=== PATIENT | male | born 1955 | race Caucasian/White ===

== ENCOUNTER 2017-07-01 07:00 | Inpatient (IN) | payer OTHER ==
[2017-06-06 11:43] VITALS: BMI 40.0
--- NOTE | 2017-06-06 12:13 | PAT Medication Instructions ---
Service Date Jun 06, 2017. Current Home Medication List Aspirin (Aspirin Ec), 81 MG PO QAM Atorvastatin (Lipitor), 40 MG PO QAM Finasteride (Proscar), 5 MG PO QAM Furosemide (Lasix), 20 MG PO QAM Metoprolol Succinate (Toprol Xl), 25 MG PO QAM Potassium Chloride (Micro-K Ext Rel), 10 MEQ PO QAM [L Lysine], 500 MG PO QAM Medication Instructions For Your Scheduled Surgery - Hold the following medications the morning of surgery: Finasteride (Proscar), 5 MG PO QAM Furosemide (Lasix), 20 MG PO QAM Potassium Chloride (Micro-K Ext Rel), 10 MEQ PO QAM [L Lysine], 500 MG PO QAM - Take the following medications the morning of surgery with a sip of water: Aspirin (Aspirin Ec), 81 MG PO QAM (okay to continue per surgeon) Atorvastatin (Lipitor), 40 MG PO QAM Metoprolol Succinate (Toprol Xl), 25 MG PO QAM If you have any questions please call us at [phone] or [phone] or [phone]
[2017-06-06 13:18] LABS: BASO % 1.5 %; BASO ABS # 0.07 K/uL (0-0.2); COMPLETE YES; EOS % 6.9 %; HEMATOCRIT 40.4 % (42-52); IG% 0.2 %; MEAN CELL VOLUME 87.3 fL (80-100); MEAN CORPUSCULAR HEMOGLOBIN 29.8 pg (25-34); MEAN CORPUSCULAR HGB CONC 34.2 g/dl (32-36); MEAN PLATELET VOLUME 9.2 fL (7.4-10.4); MONO % 10.7 %; NEUT % 57.7 %; PLATELET COUNT 237 K/uL (130-400); RED BLOOD COUNT 4.63 M/uL (4.7-6.1); WHITE BLOOD COUNT 4.78 K/uL (4.8-10.8)
--- NOTE | 2017-06-06 13:26 | DIAGNOSTIC IMAGING REPORT ---
CHEST PREADMISSION(PA/LAT) HISTORY: 62 years-old Male PAT pre-operative exam. No acute chest complaints. COMPARISON: None available. TECHNIQUE: Frontal and lateral views of the chest FINDINGS: Prior median sternotomy. Cardiomediastinal and hilar silhouettes are within normal limits. There is no pneumothorax, pleural effusion or focal airspace consolidation. Bones of the chest are grossly intact. IMPRESSION: No acute cardiopulmonary process. The above report was generated using voice recognition software. It may contain grammatical, syntax or spelling errors. Electronically signed by: Kamron Ruiz M.D. 06/06/2017 1:25 PM Dictated Date/Time: 06/06/2017 1:17 PM
[2017-06-06 13:34] LABS: URINE APPEARANCE CLEAR (CLEAR); URINE BILIRUBIN NEG (NEG); URINE COLOR YELLOW; URINE NITRITE NEG (NEG); URINE SPECIFIC GRAVITY 1.022 (1.000-1.030); UROBILINOGEN NEG (NEG); ZZUR CULT IF INDIC CLEAN CATCH NO
[2017-06-06 13:39] LABS: MANUAL MICROSCOPIC REQUIRED? NO; REVIEW REQ? NO
[2017-06-06 14:39] LABS: BUN/CREATININE RATIO 20.3 (10-20); CALCIUM 8.7 mg/dl (8.5-10.1); CREATININE 1.01 mg/dl (0.60-1.40); POTASSIUM 4.3 mmol/L (3.5-5.1)
[~2017-07-01] VITALS: Ht 182.9 cm; Wt 135.3 kg
[2017-07-01] VITALS (8 sets, daily range): BP systolic 108–161; BP diastolic 67–87; PULSE 70–99; TEMP 36.5–37; O2SAT 93–99; Ht 182.9 cm; Wt 135.3 kg
[~2017-07-01 07:00] MED LIST: ASPI81TA28 PO; ATOR-24 PO; CEFAZOLIN 3000MG IV PUSH 15 ML IV SCH; FINA5TAB PO; FURO-85 PO; L LYSINE PO; LACTATED RINGER'S 1000ML 1,000 ML IV SCH; METO25TA3 PO; POTA10CA28 PO
[2017-07-01] MEDS ORDERED: HYDROmorphone INJ 1 MG/ML SYR IV PRN (07:45)
[2017-07-01] MEDS ORDERED: FENTANYL CITRATE INJ 50 MCG/1 ML 2 ML VIAL IV PRN (07:45)
[2017-07-01] MEDS ORDERED: EpHEDrine SULFATE INJ 50 MG/ML AMP IV PRN (07:45)
[2017-07-01] MEDS ORDERED: ONDANSETRON INJ 2 MG/ML 2 ML VIAL IV PRN (07:45)
[2017-07-01] MEDS ORDERED: ATROPINE SULFATE 0.1 MG/ML 5ML SYR IV PRN (07:45)
[2017-07-01] MEDS ORDERED: FENTANYL CITRATE INJ 50 MCG/1 ML 2 ML VIAL ONE ×4 (08:11→11:59)
[2017-07-01] MEDS ORDERED: MIDAZOLAM HCL 1 MG/ML 2ML VIAL ONE (08:11)
--- NOTE | 2017-07-01 08:40 | History & Physical Bridge Note ---
H&P Re-Evaluation Bridge Note: I have examined the patient, reviewed the History & Physical and in the interval since the performance of the History & Physical I have noted the following changes of clinical significance: No changes noted
--- NOTE | 2017-07-01 08:41 | History and Physical ---
History & Physical Date Jul 01, 2017. Chief Complaint Back and bilateral leg pain History of Present Illness The patient is a 62 year old male with complaints of back and leg pain Additional History Hepatic Disease: No Endocrine Disorder: No Kidney Disease: No Hypertension: Yes Heart Disease: No Bleeding Tendencies: No Infectious Diseases: No Allergies Coded Allergies: No Known Allergies (Verified , 06/06/17) Home Medications Scheduled Aspirin (Aspirin Ec), 81 MG PO QAM Atorvastatin (Lipitor), 40 MG PO QAM Finasteride (Proscar), 5 MG PO QAM Furosemide (Lasix), 20 MG PO QAM Metoprolol Succinate (Toprol Xl), 25 MG PO QAM Potassium Chloride (Micro-K Ext Rel), 10 MEQ PO QAM [L Lysine], 500 MG PO QAM Physical Examination Skin: warm/dry, no rash Eyes: normal inspection, EOMI, sclerae normal ENT: normal ENT inspection, pharynx normal Head: normocephalic, atraumatic Neck: supple, no adenopathy, trachea midline Respiratory/Chest: lungs clear, normal breath sounds, no respiratory distress Cardiovascular: regular rate, rhythm, no edema, no murmur Abdomen / GI: normal bowel sounds, non tender Back: normal inspection Extremities: normal inspection, normal range of motion Neurologic/Psych: no motor/sensory deficits, alert, normal reflexes, oriented x 3 Diagnosis Lumbar spinal stenosis with spondylolisthesis Plan of Treatment Lumbar decompression and fusion L3 to S1
[2017-07-01] MEDS ORDERED: ALBUMIN HUMAN 5% 12.5 GM/250 ML VIAL IV ONE (08:54)
[2017-07-01] MEDS ORDERED: BUPIVACAINE/EPINEPHRINE 0.5% MPF 1:200,000 30 ML VIAL ONE (08:58)
[2017-07-01] MEDS ORDERED: BACITRACIN 50000 UNIT VIAL ONE (08:58)
[2017-07-01] MEDS ORDERED: HYDROmorphone INJ 2 MG/ML SYR/VIAL ONE ×3 (09:39→12:13)
[2017-07-01] MEDS ORDERED: THROMBIN FOR SOLN 20000 UNIT KIT ONE ×2 (10:20→10:27)
[2017-07-01] MEDS ORDERED: THROMBIN 5000 UNITS KIT ONE (10:20)
[2017-07-01 11:12] LABS: HEMATOCRIT 32.9 % (42-52)
[2017-07-01] MEDS ORDERED: DEXAMETHASONE SOD INJ 4 MG/ML VIAL ONE (11:29)
[2017-07-01] MEDS ORDERED: LIDOCAINE HCL 2% 2 ML VIAL (20MG/ML) ONE (11:29)
[2017-07-01] MEDS ORDERED: ONDANSETRON INJ 2 MG/ML 2 ML VIAL ONE (11:29)
[2017-07-01] MEDS ORDERED: PROPOFOL IV EMULSION 10 MG/ML 20 ML VIAL IV ONE (11:29)
[2017-07-01] MEDS ORDERED: ROCURONIUM BROMIDE 10 MG/ML 5 ML VIAL IV ONE (11:34)
[2017-07-01 11:52] LABS: HEMATOCRIT 30.6 % (42-52)
[2017-07-01] MEDS ORDERED: FLOSEAL HEMOSTATIC MATRIX 10ML TOP ONE (12:03)
[2017-07-01] MEDS ORDERED: SODIUM CHLORIDE 0.9% 1000ML 1,000 ML IV SCH (12:05)
[2017-07-01] MEDS ORDERED: CEFAZOLIN SOD 1 GM VIAL ONE (12:07)
[2017-07-01] MEDS ORDERED: CALCIUM CHLORIDE 10% 10 ML SYR ONE (12:07)
[2017-07-01] MEDS ORDERED: GLYCOPYRROLATE INJ 0.2 MG/ML VIAL ONE (12:14)
[2017-07-01] MEDS ORDERED: EpHEDrine SULFATE 50MG/5ML SYR ONE (12:14)
[2017-07-01] MEDS ORDERED: PHENYLEPHRINE 100MCG/ML 5ML SYR ONE (12:14)
[2017-07-01] MEDS ORDERED: EpHEDrine SULFATE INJ 50 MG/ML AMP ONE (12:14)
[2017-07-01] MEDS ORDERED: LORAZEPAM 0.5 MG TAB PO PRN (12:15)
[2017-07-01] MEDS ORDERED: DO NOT ADMINISTER PNEUMOCOCCAL VACCINE PRN ×2 (12:15)
[2017-07-01] MEDS ORDERED: MAGNESIUM HYDROXIDE SUSP 30 ML UDC PO PRN (12:15)
[2017-07-01] MEDS ORDERED: NALOXONE HCL 0.4 MG/1 ML VIAL/CARP IV PRN ×2 (12:15)
[2017-07-01] MEDS ORDERED: ACETAMINOPHEN IV 100 ML IV PRN (12:15)
[2017-07-01] MEDS ORDERED: hydrOXYzine HCL 25 MG TAB PO PRN (12:15)
[2017-07-01] MEDS ORDERED: ALUMINUM/MAGNESIUM SUSP 30 ML UDC PO PRN (12:15)
[2017-07-01] MEDS ORDERED: FAMOTIDINE 20 MG TAB PO PRN (12:15)
[2017-07-01] MEDS ORDERED: LORAZEPAM INJ 0.5 MG in SYRINGE 0 ML IV PRN (12:15)
[2017-07-01] MEDS ORDERED: SOD PHOSPHATE/SOD BIPHOSPHATE ENEMA 132 ML BTL PR PRN (12:15)
[2017-07-01] MEDS ORDERED: DO NOT ADMINISTER FLU VACCINE PRN ×3 (12:15)
[2017-07-01] MEDS ORDERED: BISACODYL 10 MG SUPP PR PRN (12:15)
[2017-07-01] MEDS ORDERED: ACETAMINOPHEN 500 MG TAB PO PRN (12:15)
[2017-07-01] MEDS ORDERED: HYDROmorphone HCL 0.5MG/ML 50 ML CASSETTE ONE (12:33)
--- NOTE | 2017-07-01 12:36 | [facility] Operative Report ---
Operative Report Operative Date Jul 01, 2017. Pre-Operative Diagnosis Lumbar Spinal Stenosis with Spondylolisthesis Post-Operative Diagnosis Same as preoperative Procedure(s) Performed #1 lumbar decompression medial facetectomy foraminotomies L3 4 L4 5 L5-S1. #2 posterior spinal fusion L3 4 L4 5 L5-S1. #3 placement of posterior segmental instrumentation L3 4 L4 5 L5-S1. #4 placement of locally harvested morcellized autograft in the posterior lateral gutters. #5 placement infuse collagen sponge combined Master graft the posterior gutters as well as ostial amp. Surgeon Dr. Jaswant Hutchison Social Services Manager Surgeon(s) Keily Nazario PA-C Estimated Blood Loss 1800ml Findings Severe spinal stenosis with spondylolisthesis Specimens None per surgeon Description of Procedure Patient was met with preoperatively case discussed all questions addressed. After informed consent was obtained patient was taken back to the operative suite underwent intubation and placed in a prone position the Mayer table top Raul frame all bony prominences well-padded eyes inspected to ensure no external pressure placed upon them. This point the lumbar spine is prepped and draped in the normal sterile fashion. Sharp dissection with the assistance of Bovie cautery was performed onto an exposing the lamina and transverse processes of L5 3 L4-L5 and the sacral alar bilaterally. From a caudal to cephalad fashion complete laminectomy of L5 L4 and L3 was performed addressing severe lateral recess and foraminal disease. Pedicle screws are then placed in L3 L4-L5 and the S1 levels bilaterally. The purposes rosa was locked in position. Transverse processes of L3 L4-L5 and sacral alar burred to subcortical bleeding bone. Infuse collagen sponge mask graft and ostial amp was placed in the posterior lateral gutters. Cross-link was locked in position. A 15 round IRVIN drain inserted. Incision then closed with 1 Vicryl in the fascia 2-0 Vicryl subcutaneous tediously 4-0 Monocryl for final skin closure Steri-Strips sterile dressings placed. Patient we can take PACU stable condition. Please note Keily Coto was present at the entire procedure involved in patient positioning complex portions of the surgery and final skin closure. I attest to the content of the Intraoperative Record and any orders documented therein. Any exceptions are noted below.
[2017-07-01] MEDS ORDERED: VOLUVEN IN NSS ONE (12:39)
--- NOTE | 2017-07-01 12:49 | DIAGNOSTIC IMAGING REPORT ---
LUMBAR SPINE 2 OR 3 VIEW CLINICAL HISTORY: L3-S1 LUMBAR DECOMPRESSION AND FUSION COMPARISON STUDY: Lumbar spine MRI March 14, 2017. Fluoroscopy time: 31.4 seconds. FINDINGS: These 3 fluoroscopic images demonstrate a posterior decompression with bilateral pedicle screws at the L3, L4, L5 and S1 levels. There are interconnecting rods. Hardware is intact. IMPRESSION: Fluoroscopic images demonstrating a posterior decompression with L3-S1 bilateral pedicle screw fusion. Electronically signed by: Joe Zee M.D. 07/01/2017 12:47 PM Dictated Date/Time: 07/01/2017 12:46 PM
--- NOTE | 2017-07-01 13:12 | Anesthesiology Progress Note ---
Anesthesia Post Op Note Date & Time Jul 01, 2017 at 13:11 Vital Signs Pain Intensity: 2 Vital Signs Past 12 Hours Date Time Temp Pulse Resp B/P (MAP) Pulse Ox O2 Delivery O2 Flow Rate FiO2 07/01/17 13:05 36.2 86 14 113/72 94 Nasal Cannula 4 07/01/17 12:55 88 15 124/70 98 Nasal Cannula 4 07/01/17 12:45 82 13 113/63 97 Oxymask 10 07/01/17 12:35 90 13 126/76 100 Oxymask 10 07/01/17 12:29 36.0 90 18 123/72 97 Oxymask 10 07/01/17 07:54 36.6 70 20 161/87 95 Room Air Notes Mental Status: alert / awake / arousable, participated in evaluation Pt Amnestic to Procedure: Yes Nausea / Vomiting: adequately controlled Pain: adequately controlled Airway Patency, RR, SpO2: stable & adequate BP & HR: stable & adequate Hydration State: stable & adequate Anesthetic Complications: no major complications apparent
[2017-07-01] MEDS: HYDROmorphone HCL 0.5MG/ML 50 ML CASSETTE IV PRN ×3 (13:25→22:49)
[2017-07-01] MEDS ORDERED: TAMS0.4C38 PO (15:29)
[2017-07-01] MEDS: DEXAMETHASONE INJ 6 MG in SYRINGE 0 ML IV SCH ×2 (16:08→23:48)
--- NOTE | 2017-07-01 16:12 | Medical Consult ---
Consultation Date of Consultation: Jul 01, 2017. Attending Physician: Jaswant Hutchison D.O. Reason for Consultation: Post Op Medical Management History of Present Illness 62 year old male who is s/p L3-S1 decompression / fusion today by Dr. Hutchison. Patient reports increasing back pain for the past several years. He failed outpatient conservative measures and therefore presented for the planned procedure today. Post operatively the patient is doing well. He reports his pain is well controlled. He denies chest pain and shortness of breath. No lightheadedness or dizziness. He denies numbness to the BLLE. No abdominal pain or nausea. Burch is in place draining yellow urine. Past Medical/Surgical History Medical Problems: (1) BPH (benign prostatic hyperplasia) Status: Chronic (2) CAD (coronary artery disease) Permanent Comment: 04/2016 - CABG x 3 Status: Chronic Surgical Problems: (1) History of right hip replacement Status: Chronic Family History FH: CAD (coronary artery disease) MOTHER UNCLE Hypertension FATHER Social History Smoking Status: Never Smoker Smokeless Tobacco Use: Former Alcohol Use: occasionally Allergies Coded Allergies: No Known Allergies (Verified , 06/06/17) Home Medications Flomax (Tamsulosin Hcl) 0.4 Mg Cap 0.4 Mg PO DAILY [L Lysine] 500 Mg PO QAM Proscar (Finasteride) 5 Mg Tab 5 Mg PO QAM Toprol Xl (Metoprolol Succinate) 25 Mg Tabcr 25 Mg PO QAM Aspirin Ec (Aspirin) 81 Mg Tab 81 Mg PO QAM Lasix (Furosemide) 20 Mg Tab 20 Mg PO QAM Lipitor (Atorvastatin Calcium) 40 Mg Tab 40 Mg PO QAM Micro-K Ext Rel (Potassium Chloride) 10 Meq Capcr 10 Meq PO QAM Current Inpatient Medications Current Inpatient Medications Medications (Trade) Dose Ordered Sig/Drew Route Start Time Stop Time Status Last Admin Dose Admin Lactated Ringer's 1,000 ml @ 15 mls/hr Q24H IV 07/01/17 06:00 07/02/17 05:59 07/01/17 09:20 15 MLS/HR Cefazolin Sodium 15 ml @ 3 mls/min PREOP IV 07/01/17 06:00 07/01/17 18:00 07/01/17 09:12 3 MLS/MIN Dexamethasone Sodium Phosphate 6 mg/Syringe 1.5 ml @ 1 mls/min Q8H IV 07/01/17 16:00 07/02/17 08:02 Lorazepam (Ativan Tab) 0.5 mg Q8H PRN PO 07/01/17 12:15 07/31/17 12:14 Lorazepam 0.5 mg/ Syringe 0.25 ml @ 1 mls/min Q8H PRN IV 07/01/17 12:15 07/31/17 12:14 Pneumococcal Polysaccharide Vaccine 1 ea PRN PRN N/A 07/01/17 12:15 07/31/17 12:14 Influenza Virus Vacc Triv Types A&B 1 ea PRN PRN N/A 07/01/17 12:15 07/31/17 12:14 Polyethylene (Miralax Powder Packet) 17 gm Q6 PO 07/03/17 06:00 08/02/17 05:59 Bisacodyl (Dulcolax Supp) 10 mg DAILY PRN [place] 07/01/17 12:15 07/31/17 12:14 Magnesium Hydroxide (Milk Of Magnesia Susp) 30 ml DAILY PRN PO 07/01/17 12:15 07/31/17 12:14 Hydromorphone HCl (Dilaudid Inj) 0.5 mg Q3H PRN IV 07/02/17 06:00 07/16/17 05:59 Oxycodone HCl (Roxicodone Immediate Rel Tab) 5-10mg prn moderate to sev... Q4H PRN PO 07/02/17 06:00 07/16/17 05:59 Cefazolin Sodium 3000 mg/Syringe 15 ml @ 3 mls/min Q8H IV 07/01/17 20:00 07/02/17 04:04 Sodium Chloride 1,000 ml @ 150 mls/hr Q6H40M IV 07/01/17 15:00 07/31/17 14:59 Acetaminophen (Tylenol Tab) 1,000 mg Q8H PRN PO 07/01/17 12:15 07/31/17 12:14 Acetaminophen 100 ml @ 400 mls/hr Q8H PRN IV 07/01/17 12:15 07/31/17 12:14 Naloxone HCl (Narcan Inj) 0.1 mg Q5M PRN IV 07/01/17 12:15 07/31/17 12:14 Senna/Docusate Sodium (Senokot S Tab) 2 tab HS PO 07/01/17 21:00 07/31/17 20:59 Sodium Biphosphate/ Sodium Phosphate (Fleet Enema) 132 ml ONE PRN [place] 07/01/17 12:15 07/31/17 12:14 Hydroxyzine HCl (Vistaril Tab) 25 mg Q8H PRN PO 07/01/17 12:15 07/31/17 12:14 Al Hydroxide/Mg Hydroxide (Maalox Susp) 30 ml Q6H PRN PO 07/01/17 12:15 07/31/17 12:14 Famotidine (Pepcid Tab) 20 mg Q12H PRN PO 07/01/17 12:15 07/31/17 12:14 Diphenhydramine HCl (Benadryl Cap) 25 mg Q6H PRN PO 07/01/17 12:15 07/31/17 12:14 Miscellaneous Information (Discontinue WRAP CHECKER) 1 ea TODAY@0600 N/A 07/02/17 06:00 07/02/17 07:00 Naloxone HCl (Narcan Inj) 0.1 mg Q5M PRN IV 07/01/17 12:15 07/02/17 06:00 Hydromorphone HCl (Dilaudid Doctor [facility]iatric Medicine) 25 mg PRN PRN IV 07/01/17 12:15 07/02/17 06:00 07/01/17 14:58 25 MG Sodium Chloride 1,000 ml @ 15 mls/hr Q24H IV 07/01/17 12:05 07/02/17 06:00 Aspirin (Ecotrin Tab) 81 mg QAM PO 07/02/17 09:00 08/01/17 08:59 Atorvastatin Calcium (Lipitor Tab) 40 mg QAM PO 07/02/17 09:00 08/01/17 08:59 Finasteride (Proscar Tab) 5 mg QAM PO 07/02/17 09:00 08/01/17 08:59 Furosemide (Lasix Tab) 20 mg QAM PO 07/02/17 09:00 08/01/17 08:59 Metoprolol Succinate (Toprol Xl Tab) 25 mg QAM PO 07/02/17 09:00 08/01/17 08:59 Potassium Chloride (Klor-Con M10) 10 meq QAM PO 07/02/17 09:00 08/01/17 08:59 Hydromorphone HCl (Dilaudid Inj) 1 mg Q3H PRN IV 07/02/17 06:00 07/16/17 05:59 Tamsulosin HCl (Flomax Cap) 0.4 mg DAILY PO 07/02/17 09:00 08/01/17 08:59 UNV Review of Systems ROS per HPI, all other systems reviewed and negative Physical Exam Date Time Temp Pulse Resp B/P (MAP) Pulse Ox O2 Delivery O2 Flow Rate FiO2 07/01/17 15:30 36.5 88 18 136/83 (100) 99 Nasal Cannula 2.0 07/01/17 14:26 99 16 111/73 (86) 97 Nasal Cannula 4.0 07/01/17 14:00 91 18 111/73 (86) 97 Nasal Cannula 4.0 07/01/17 14:00 91 18 114/76 (89) 94 07/01/17 13:30 96 Nasal Cannula 4.0 07/01/17 13:30 Nasal Cannula 4.0 07/01/17 13:30 36.8 89 18 115/68 (84) 96 Nasal Cannula 4.0 07/01/17 13:05 36.2 86 14 113/72 94 Nasal Cannula 4 07/01/17 12:55 88 15 124/70 98 Nasal Cannula 4 07/01/17 12:45 82 13 113/63 97 Oxymask 10 07/01/17 12:35 90 13 126/76 100 Oxymask 10 07/01/17 12:29 36.0 90 18 123/72 97 Oxymask 10 07/01/17 07:54 36.6 70 20 161/87 95 Room Air General Appearance: WD/WN, no apparent distress Head: normocephalic, atraumatic Eyes: normal inspection, EOMI, sclerae normal ENT: hearing grossly normal, + pertinent finding (mucous membranes moist) Neck: supple, no JVD, trachea midline Respiratory/Chest: lungs clear, normal breath sounds, no respiratory distress Cardiovascular: regular rate, rhythm, no edema, normal peripheral pulses Abdomen/GI: normal bowel sounds, non tender, soft, no organomegaly, + distended Genitourinary - Male: + pertinent finding (burch in place draining yellow urine ) Back: + pertinent finding (s/p back surgery, pedal pushes and pulls strong BL, drain in place draining bloody drainage) Extremities/Musculoskelatal: normal inspection, no calf tenderness, normal capillary refill Neurologic/Psych: no motor/sensory deficits, alert, normal mood/affect, oriented x 3 Skin: normal color, warm/dry Laboratory Results Last 24 Hours Test 07/01/17 11:01 07/01/17 11:45 Hemoglobin 11.0 g/dL 10.2 g/dL Hematocrit 32.9 % 30.6 % Assessment & Plan S/P L3-S1 DECOMPRESSION / FUSION - POD#0 - activity and wound care orders as per ortho - pain control with bowel regimen - PT/OT - monitor H/H for acute blood loss anemia and transfuse blood products PRN - 1800 EBL; will recheck H/H tonight CAD - s/p CABG x 3 04/2016 - stable, no reports of chest pain - continue ASA, beta galo, and statin BPH - continue finasteride and tamsulosin DVT PROPHYLAXIS - SCDs per ortho Thank you for this consultation. We will follow the patient with you during their hospital stay. You can reach a member of the [facility] Hospitalist Team 18/02 via pager @ . ADDENDUM: I have seen and examined the patient and agree with the assessment and plan as above. Pt continues on ASA with large EBL intraoperatively and continued drainage post-op. Repeat H/H was negative. Cont to monitor while hospitalized. Thank you for this consultation. DO Arcenio
[2017-07-01] MEDS: SODIUM CHLORIDE 0.9% 1000ML 1,000 ML IV SCH ×2 (18:24→23:48)
[2017-07-01 19:27] LABS: HEMATOCRIT 31.6 % (42-52)
[2017-07-01] MEDS ORDERED: NURSING VERBAL MED ORDER ONE (19:30)
[2017-07-01] MEDS: CEFAZOLIN IV 3,000 MG in SYRINGE 0 ML IV SCH (20:02)
[2017-07-01] MEDS: DOCUSATE SODIUM/SENNA 50/8.6MG TAB PO SCH (21:07)
[2017-07-02 03:29] VITALS: BP 121/66; PULSE 92; TEMP 36.8; O2SAT 95
[2017-07-02] MEDS: CEFAZOLIN IV 3,000 MG in SYRINGE 0 ML IV SCH (04:03)
[2017-07-02] MEDS ORDERED: HYDROmorphone INJ 1 MG/ML SYR IV PRN (06:00)
[2017-07-02] MEDS ORDERED: HYDROmorphone INJ 0.5 MG/0.5 ML SYR IV PRN (06:00)
[2017-07-02] MEDS ORDERED: DC PCA SCH (06:00)
[2017-07-02] MEDS ORDERED: NURSING VERBAL MED ORDER ONE (06:45)
[2017-07-02 06:49] LABS: BASO % 0.1 %; BASO ABS # 0.01 K/uL (0-0.2); COMPLETE YES; HEMATOCRIT 29.2 % (42-52); IG% 0.5 %; LYMPH ABS # 0.53 K/uL (1.2-3.4); MEAN CELL VOLUME 87.7 fL (80-100); MEAN CORPUSCULAR HEMOGLOBIN 29.4 pg (25-34); MEAN CORPUSCULAR HGB CONC 33.6 g/dl (32-36); MEAN PLATELET VOLUME 9.3 fL (7.4-10.4); MONO % 4.9 %; NEUT % 90.5 %; PLATELET COUNT 178 K/uL (130-400); RED BLOOD COUNT 3.33 M/uL (4.7-6.1); WHITE BLOOD COUNT 13.31 K/uL (4.8-10.8)
[2017-07-02 07:17] LABS: BUN/CREATININE RATIO 19.4 (10-20); CALCIUM 8.2 mg/dl (8.5-10.1); CREATININE 1.11 mg/dl (0.60-1.40); POTASSIUM 3.8 mmol/L (3.5-5.1)
[2017-07-02 07:18] VITALS: O2SAT 97
[2017-07-02 07:25] VITALS: BP 129/72; PULSE 84; TEMP 36.6; O2SAT 97
[2017-07-02] MEDS ORDERED: RXC5 PO (07:43)
--- NOTE | 2017-07-02 07:43 | Discharge Instructions ---
Discharge Instructions Date of Service Jul 02, 2017. Admission Reason for Admission: Lumbar Spinal Stenosis Discharge Discharge Diagnosis / Problem: lumbar spinal stenosis Discharge Goals Goal(s): Improve function Activity Recommendations Activity Limitations: per Instructions/Follow-up section . Instructions / Follow-Up Instructions / Follow-Up ACTIVITY RECOMMENDATIONS: SELF CARE INSTRUCTIONS AFTER THORACIC/LUMBAR FUSIONS 1. You may walk to your tolerance. It is good exercise for your legs and back. Expect some back and intermittent leg aches and pains. 2. You may perform "counter-top" level activities (make a sandwich, lenore with a project, etc.). 3. No bending or lifting of more than 10 pounds or back twisting of any nature (roll like a log when turning in bed). 4. You may ride in a car for 20-30 minutes at a time. No driving until after your first visit with your doctor. 5. Frequent changes of position and restricting sitting to 30 minutes at a time will help limit the amount of back spasms and stiffness you may experience. 6. You may discontinue the use of ambulatory aids (cane, crutches, etc.) once your strength and confidence allow. 7. You may risk investigator the shower and let water strike your incision when you arrive home at least once daily. Do not take a tub bath, sit in a hot tub or go into a swimming pool until after your first recheck in the office. SPECIAL CARE INSTRUCTIONS: VERY IMPORTANT TO READ AND REVIEW A. Your surgical incision has been closed with a cosmetic suture under the skin that will dissolve in about 6 weeks. In 14 days, you can use a pair of clean scissors and cut the suture that is left outside of the skin at the ends of your incision. 1. The small skin tapes can be removed 7 days after surgery if they have not fallen off by that point. 2. You may keep the wound open to air as much as possible to promote healing after post-op day number 5 unless told otherwise by your doctor. 3. If you think the wound looks like it is becoming infected (redness or worsening drainage) and/or you are experiencing fever, chill or worsening back pain and muscle spasms, contact the office so that we may evaluate you as soon as possible. B. Complications are uncommon, but please contact us if you have any signs or symptoms of: 1. wound infection (fever higher than 102.5 degrees F, redness, separation of wound, drainage, or increasing pain from the incision) 2. blood clots in legs (pain, swelling, redness and warmth in legs) 3. urinary tract infection (fever higher than 102.5 degrees F, burning upon urination or increased frequency of urination) 4. nerve problems (inability to walk on your toes or heels, numbness, loss of bowel or bladder control) 5. any other symptoms that concern you C. Please call the office at if you have any concerns or questions about your operation or recovery. D. No smoking! Smoking drastically decreases the chance of a solid fusion. E. Do not take any anti-inflammatory medications (Indocin, Advil, Motrin, Aspirin, Naprosyn, etc.) as these may inhibit the chance of a solid fusion. Tylenol is okay to take for pain. MANAGING PAIN AFTER SPINAL SURGERY 1. Narcotic medication is intended for short-term use and will be provided for surgical pain. Surgical pain usually lasts for a period of 4-6 weeks. Narcotic medication includes Percocet, Vicodin, Darvocet, Tylenol #3 or Lortab. 2. Longer-term pain is more appropriately treated with non-narcotic medication such as Tylenol ES. 3. Muscle spasm is not appropriately treated with narcotics. Muscle relaxers such as Soma, Flexeril or Skelaxin can be used along with Tylenol ES. 4. Remember that we all live with some "aches and pains". This is not unusual or uncommon after an injury or as we get older. a. Back pain is expected and may include muscle spasms for 4 to 6 weeks after surgery. The pain should gradually improve. If the pain worsens for no apparent reason, please contact the office. b. Intermittent leg pain may also be experienced and should not be concerned about unless it worsens for no apparent reason. If so, please contact the office. 5. We will provide appropriate medication within the normal guidelines of their prescribed use. We will also be very cautious and aware of potential abuse and extended duration of patients' medication needs. a. Pain medications are for your comfort and to assist with sleep and rest so that the tissue can heal. They are not provided in order to return to normal activity and should not be used through the day. To do so or worsening pain at night can result from ongoing tissue damage and development of tolerance to the prescribed medicine. 6. Please allow 2-3 days to process refills. Prescriptions will not be mailed but must be picked up at the office. FOLLOW UP VISIT: Keep your scheduled follow-up appointment. Any questions, please call the office at . Current Hospital Diet Patient's current hospital diet: Regular Diet Discharge Diet Recommended Diet: Regular Diet Procedures Procedures Performed: #1 lumbar decompression medial facetectomy foraminotomies L3 4 L4 5 L5-S1. #2 posterior spinal fusion L3 4 L4 5 L5-S1. #3 placement of posterior segmental instrumentation L3 4 L4 5 L5-S1. #4 placement of locally harvested morcellized autograft in the posterior lateral gutters. #5 placement infuse collagen sponge combined Master graft the posterior gutters as well as ostial amp. Pending Studies Studies pending at discharge: no Medical Emergencies . Who to Call and When: Medical Emergencies: If at any time you feel your situation is an emergency, please call 911 immediately. . Non-Emergent Contact Non-Emergency issues call your: Primary Care Provider . "Provider Documentation" section prepared by Jaswant Hutchison. . VTE Core Measure Inpt VTE Proph given/why not?: Adolph Crystal, SCD's
[2017-07-02] MEDS: DEXAMETHASONE INJ 6 MG in SYRINGE 0 ML IV SCH (08:12)
[2017-07-02] MEDS: TAMSULOSIN HCL 0.4 MG CAP PO SCH (08:13)
[2017-07-02] MEDS: ASPIRIN 81 MG ECTAB PO SCH (08:13)
[2017-07-02] MEDS: POTASSIUM CHLORIDE 10 MEQ TABCR PO SCH (08:14)
[2017-07-02] MEDS: ATORVASTATIN 40 MG TAB PO SCH (08:14)
[2017-07-02] MEDS: FINASTERIDE 5 MG TAB PO SCH (08:14)
[2017-07-02] MEDS: FUROSEMIDE 20 MG TAB PO SCH (08:15)
[2017-07-02] MEDS: METOPROLOL SUCC 25MG EXT REL TAB PO SCH (08:15)
--- NOTE | 2017-07-02 08:56 | Anesthesiology Progress Note ---
Anesthesia Post Op Note Date & Time Jul 02, 2017 at 08:56 Vital Signs Pain Intensity: 0.0 Vital Signs Past 12 Hours Date Time Temp Pulse Resp B/P (MAP) Pulse Ox O2 Delivery O2 Flow Rate FiO2 07/02/17 07:25 36.6 84 16 129/72 (91) 97 Room Air 07/02/17 03:29 36.8 92 18 121/66 (84) 95 Room Air 07/01/17 23:45 Room Air 0.0 07/01/17 23:02 37.0 84 18 112/67 (82) 94 Room Air Notes Mental Status: alert / awake / arousable, participated in evaluation Pt Amnestic to Procedure: Yes Nausea / Vomiting: adequately controlled Pain: adequately controlled Airway Patency, RR, SpO2: stable & adequate BP & HR: stable & adequate Hydration State: stable & adequate Anesthetic Complications: no major complications apparent
[2017-07-02 11:08] VITALS: BP 122/73; PULSE 85; TEMP 36.8; O2SAT 96
[2017-07-02] MEDS: OXYCODONE HCL IR 5 MG TAB (IMMEDIATE RELEASE) PO PRN ×3 (14:25→19:14)
[2017-07-02] MEDS ORDERED: KETOROLAC TROMETHAMINE 30 MG/ML VIAL IV PRN (14:30)
--- NOTE | 2017-07-02 14:32 | Progress Note ---
Progress Note Date of Service Jul 02, 2017. Progress Note Patient is postop day 1 status post multilevel lumbar decompression fusion. Exam he is sitting in chair at bedside as good strength testing appears comfortable. Assessment status post lumbar decompression fusion. Plan at this time will continue to advance his activity as well as his bowel regiment. Anticipate discharge home with home health.
[2017-07-02 15:29] VITALS: BP 131/67; PULSE 81; TEMP 37; O2SAT 95
--- NOTE | 2017-07-02 19:19 | Progress Note ---
Medicine Progress Note Date & Time of Visit: Jul 02, 2017 at 19:13. Subjective Pt was seen and examined Sitting in chair very comfortable with family presents Pt said that he walked in the hallway today with no discomfort Pt said that he is not on any pain Denies any chest pain, palpitation, dizziness and SOB Objective Last 8 Hrs Date Time Temp Pulse Resp B/P (MAP) Pulse Ox O2 Delivery O2 Flow Rate FiO2 07/02/17 15:35 Room Air 07/02/17 15:29 37.0 81 18 131/67 (88) 95 Room Air Physical Exam: General- no acute distress Head- atraumatic Eyes- PERRL, EOMI ENT- oropharynx clear Neck- supple, no JVD Lungs- clear to auscultation Heart- regular rhythm Abdomen- normal bowel sounds, soft Extremities-No calf tenderness Neuro- alert, oriented x 3; PERRL, EOMI Skin- warm & dry Laboratory Results: Last 24 Hours Test 07/01/17 19:17 07/02/17 06:31 Hemoglobin 10.6 g/dL 9.8 g/dL Hematocrit 31.6 % 29.2 % White Blood Count 13.31 K/uL Red Blood Count 3.33 M/uL Mean Corpuscular Volume 87.7 fL Mean Corpuscular Hemoglobin 29.4 pg Mean Corpuscular Hemoglobin Concent 33.6 g/dl Platelet Count 178 K/uL Mean Platelet Volume 9.3 fL Neutrophils (%) (Auto) 90.5 % Lymphocytes (%) (Auto) 4.0 % Monocytes (%) (Auto) 4.9 % Eosinophils (%) (Auto) 0.0 % Basophils (%) (Auto) 0.1 % Neutrophils # (Auto) 12.06 K/uL Lymphocytes # (Auto) 0.53 K/uL Monocytes # (Auto) 0.65 K/uL Eosinophils # (Auto) 0.00 K/uL Basophils # (Auto) 0.01 K/uL RDW Standard Deviation 41.5 fL RDW Coefficient of Variation 12.8 % Immature Granulocyte % (Auto) 0.5 % Immature Granulocyte # (Auto) 0.06 K/uL Sodium Level 139 mmol/L Potassium Level 3.8 mmol/L Chloride Level 107 mmol/L Carbon Dioxide Level 25 mmol/L Anion Gap 7.0 mmol/L Blood Urea Nitrogen 22 mg/dl Creatinine 1.11 mg/dl Est Creatinine Clear Calc Drug Dose 99.5 ml/min Estimated GFR () 82.6 Estimated GFR (Non- 71.3 BUN/Creatinine Ratio 19.4 Random Glucose 134 mg/dl Calcium Level 8.2 mg/dl Assessment & Plan S/P L3-S1 DECOMPRESSION / FUSION POD#[address] Hutchison pain control PT/OT incentive spirometry Monitor H/H CAD s/p CABG x 3 04/2016 Continue ASA, beta galo, and statin Stable BPH continue finasteride and tamsulosin DVT PROPHYLAXIS SCDs per ortho CODE STATUS FULL CODE Current Inpatient Medications: Current Inpatient Medications Medications (Trade) Dose Ordered Sig/Drew Route Start Time Stop Time Status Last Admin Dose Admin Lorazepam (Ativan Tab) 0.5 mg Q8H PRN PO 07/01/17 12:15 07/31/17 12:14 Lorazepam 0.5 mg/ Syringe 0.25 ml @ 1 mls/min Q8H PRN IV 07/01/17 12:15 07/31/17 12:14 Pneumococcal Polysaccharide Vaccine 1 ea PRN PRN N/A 07/01/17 12:15 07/31/17 12:14 Influenza Virus Vacc Triv Types A&B 1 ea PRN PRN N/A 07/01/17 12:15 07/31/17 12:14 Polyethylene (Miralax Powder Packet) 17 gm Q6 PO 07/03/17 06:00 08/02/17 05:59 Bisacodyl (Dulcolax Supp) 10 mg DAILY PRN MT 07/01/17 12:15 07/31/17 12:14 Magnesium Hydroxide (Milk Of Magnesia Susp) 30 ml DAILY PRN PO 07/01/17 12:15 07/31/17 12:14 Hydromorphone HCl (Dilaudid Inj) 0.5 mg Q3H PRN IV 07/02/17 06:00 07/16/17 05:59 Oxycodone HCl (Roxicodone Immediate Rel Tab) 5-10mg prn moderate to sev... Q4H PRN PO 07/02/17 06:00 07/16/17 05:59 07/02/17 15:20 5 MG Acetaminophen (Tylenol Tab) 1,000 mg Q8H PRN PO 07/01/17 12:15 07/31/17 12:14 Acetaminophen 100 ml @ 400 mls/hr Q8H PRN IV 07/01/17 12:15 07/31/17 12:14 Naloxone HCl (Narcan Inj) 0.1 mg Q5M PRN IV 07/01/17 12:15 07/31/17 12:14 Senna/Docusate Sodium (Senokot S Tab) 2 tab HS PO 07/01/17 21:00 07/31/17 20:59 07/01/17 21:07 2 TAB Sodium Biphosphate/ Sodium Phosphate (Fleet Enema) 132 ml ONE PRN MT 07/01/17 12:15 07/31/17 12:14 Hydroxyzine HCl (Vistaril Tab) 25 mg Q8H PRN PO 07/01/17 12:15 07/31/17 12:14 Al Hydroxide/Mg Hydroxide (Maalox Susp) 30 ml Q6H PRN PO 07/01/17 12:15 07/31/17 12:14 Famotidine (Pepcid Tab) 20 mg Q12H PRN PO 07/01/17 12:15 07/31/17 12:14 Diphenhydramine HCl (Benadryl Cap) 25 mg Q6H PRN PO 07/01/17 12:15 07/31/17 12:14 Aspirin (Ecotrin Tab) 81 mg QAM PO 07/02/17 09:00 08/01/17 08:59 07/02/17 08:13 81 MG Atorvastatin Calcium (Lipitor Tab) 40 mg QAM PO 07/02/17 09:00 08/01/17 08:59 07/02/17 08:14 40 MG Finasteride (Proscar Tab) 5 mg QAM PO 07/02/17 09:00 08/01/17 08:59 07/02/17 08:14 5 MG Furosemide (Lasix Tab) 20 mg QAM PO 07/02/17 09:00 08/01/17 08:59 07/02/17 08:15 20 MG Metoprolol Succinate (Toprol Xl Tab) 25 mg QAM PO 07/02/17 09:00 08/01/17 08:59 07/02/17 08:15 25 MG Potassium Chloride (Klor-Con M10) 10 meq QAM PO 07/02/17 09:00 08/01/17 08:59 07/02/17 08:14 10 MEQ Hydromorphone HCl (Dilaudid Inj) 1 mg Q3H PRN IV 07/02/17 06:00 07/16/17 05:59 Tamsulosin HCl (Flomax Cap) 0.4 mg DAILY PO 07/02/17 09:00 08/01/17 08:59 07/02/17 08:13 0.4 MG Ketorolac Tromethamine (Toradol Inj) 30 mg Q6H PRN IV 07/02/17 14:30 07/07/17 14:29
[2017-07-02] MEDS: DOCUSATE SODIUM/SENNA 50/8.6MG TAB PO SCH (20:54)
[2017-07-02 23:03] VITALS: BP 104/64; PULSE 83; TEMP 36.6; O2SAT 95
[2017-07-03] MEDS: POLYETHYLENE (MIRALAX) 17 GM PACK PO SCH ×4 (06:01→23:46)
[2017-07-03 06:56] VITALS: BP 137/72; PULSE 82; TEMP 36.6; O2SAT 96
[2017-07-03 07:15] VITALS: O2SAT 96
[2017-07-03 07:18] LABS: HEMATOCRIT 26.6 % (42-52); MEAN CELL VOLUME 88.4 fL (80-100); MEAN CORPUSCULAR HEMOGLOBIN 29.6 pg (25-34); MEAN CORPUSCULAR HGB CONC 33.5 g/dl (32-36); MEAN PLATELET VOLUME 9.7 fL (7.4-10.4); PLATELET COUNT 180 K/uL (130-400); RED BLOOD COUNT 3.01 M/uL (4.7-6.1); WHITE BLOOD COUNT 9.92 K/uL (4.8-10.8)
[2017-07-03] MEDS: OXYCODONE HCL IR 5 MG TAB (IMMEDIATE RELEASE) PO PRN ×2 (07:30→15:25)
[2017-07-03 09:11] VITALS: BP 186/83; PULSE 89
[2017-07-03] MEDS: ASPIRIN 81 MG ECTAB PO SCH (09:13)
[2017-07-03] MEDS: FINASTERIDE 5 MG TAB PO SCH (09:13)
[2017-07-03] MEDS: ATORVASTATIN 40 MG TAB PO SCH (09:13)
[2017-07-03] MEDS: METOPROLOL SUCC 25MG EXT REL TAB PO SCH (09:13)
[2017-07-03] MEDS: FUROSEMIDE 20 MG TAB PO SCH (09:14)
[2017-07-03] MEDS: POTASSIUM CHLORIDE 10 MEQ TABCR PO SCH (09:14)
[2017-07-03] MEDS: TAMSULOSIN HCL 0.4 MG CAP PO SCH (09:14)
--- NOTE | 2017-07-03 13:23 | Progress Note ---
Progress Note Date of Service Jul 03, 2017. Progress Note Patient is postop day #2. Back pain is controlled. Leg symptoms are markedly improved. On exam he is in chair at bedside as good strength testing discomfort assessment status post multilevel lumbar depression fusion replant this time will maintain IRVIN drain another 24 hours and anticipate DC home tomorrow.
[2017-07-03 16:00] VITALS: BP 118/69; PULSE 76; TEMP 37.2; O2SAT 96
--- NOTE | 2017-07-03 20:35 | Progress Note ---
Medicine Progress Note Date & Time of Visit: Jul 03, 2017 at 20:35. Subjective Pt was seen and examined Sitting in chair with no distress Denies any chest pain, palpitation and SOB Objective Last 8 Hrs Date Time Temp Pulse Resp B/P (MAP) Pulse Ox O2 Delivery O2 Flow Rate FiO2 07/03/17 16:00 37.2 76 18 118/69 (85) 96 Room Air 07/03/17 15:20 Room Air Physical Exam: General- no acute distress Head- atraumatic Eyes- PERRL, EOMI ENT- oropharynx clear Neck- supple, no JVD Lungs- clear to auscultation Heart- regular rhythm Abdomen- normal bowel sounds, soft Extremities-No calf tenderness Neuro- alert, oriented x 3; PERRL, EOMI Skin- warm & dry Laboratory Results: Last 24 Hours Test 07/03/17 06:36 White Blood Count 9.92 K/uL Red Blood Count 3.01 M/uL Hemoglobin 8.9 g/dL Hematocrit 26.6 % Mean Corpuscular Volume 88.4 fL Mean Corpuscular Hemoglobin 29.6 pg Mean Corpuscular Hemoglobin Concent 33.5 g/dl RDW Standard Deviation 41.9 fL RDW Coefficient of Variation 12.9 % Platelet Count 180 K/uL Mean Platelet Volume 9.7 fL Assessment & Plan S/P L3-S1 DECOMPRESSION / FUSION POD#[address] Hutchison pain control PT/OT incentive spirometry Monitor H/H CAD s/p CABG x 3 04/2016 Continue ASA, beta galo, and statin Stable BPH continue finasteride and tamsulosin DVT PROPHYLAXIS SCDs per ortho CODE STATUS FULL CODE Current Inpatient Medications: Current Inpatient Medications Medications (Trade) Dose Ordered Sig/Drew Route Start Time Stop Time Status Last Admin Dose Admin Lorazepam (Ativan Tab) 0.5 mg Q8H PRN PO 07/01/17 12:15 07/31/17 12:14 Lorazepam 0.5 mg/ Syringe 0.25 ml @ 1 mls/min Q8H PRN IV 07/01/17 12:15 07/31/17 12:14 Pneumococcal Polysaccharide Vaccine 1 ea PRN PRN N/A 07/01/17 12:15 07/31/17 12:14 Influenza Virus Vacc Triv Types A&B 1 ea PRN PRN N/A 12/4/17 12:15 07/31/17 12:14 Polyethylene (Miralax Powder Packet) 17 gm Q6 PO 07/03/17 06:00 08/02/17 05:59 07/03/17 18:34 17 GM Bisacodyl (Dulcolax Supp) 10 mg DAILY PRN [place] 07/01/17 12:15 07/31/17 12:14 Magnesium Hydroxide (Milk Of Magnesia Susp) 30 ml DAILY PRN PO 07/01/17 12:15 07/31/17 12:14 Hydromorphone HCl (Dilaudid Inj) 0.5 mg Q3H PRN IV 07/02/17 06:00 07/16/17 05:59 Oxycodone HCl (Roxicodone Immediate Rel Tab) 5-10mg prn moderate to sev... Q4H PRN PO 07/02/17 06:00 07/16/17 05:59 07/03/17 15:25 10 MG Acetaminophen (Tylenol Tab) 1,000 mg Q8H PRN PO 07/01/17 12:15 07/31/17 12:14 Acetaminophen 100 ml @ 400 mls/hr Q8H PRN IV 07/01/17 12:15 07/31/17 12:14 Naloxone HCl (Narcan Inj) 0.1 mg Q5M PRN IV 07/01/17 12:15 07/31/17 12:14 Senna/Docusate Sodium (Senokot S Tab) 2 tab HS PO 07/01/17 21:00 07/31/17 20:59 07/02/17 20:54 2 TAB Sodium Biphosphate/ Sodium Phosphate (Fleet Enema) 132 ml ONE PRN [place] 07/01/17 12:15 07/31/17 12:14 Hydroxyzine HCl (Vistaril Tab) 25 mg Q8H PRN PO 07/01/17 12:15 07/31/17 12:14 Al Hydroxide/Mg Hydroxide (Maalox Susp) 30 ml Q6H PRN PO 07/01/17 12:15 07/31/17 12:14 Famotidine (Pepcid Tab) 20 mg Q12H PRN PO 07/01/17 12:15 07/31/17 12:14 Diphenhydramine HCl (Benadryl Cap) 25 mg Q6H PRN PO 07/01/17 12:15 07/31/17 12:14 Aspirin (Ecotrin Tab) 81 mg QAM PO 07/02/17 09:00 08/01/17 08:59 07/03/17 09:13 81 MG Atorvastatin Calcium (Lipitor Tab) 40 mg QAM PO 07/02/17 09:00 08/01/17 08:59 07/03/17 09:13 40 MG Finasteride (Proscar Tab) 5 mg QAM PO 07/02/17 09:00 08/01/17 08:59 07/03/17 09:13 5 MG Furosemide (Lasix Tab) 20 mg QAM PO 07/02/17 09:00 08/01/17 08:59 07/03/17 09:14 20 MG Metoprolol Succinate (Toprol Xl Tab) 25 mg QAM PO 07/02/17 09:00 08/01/17 08:59 07/03/17 09:13 25 MG Potassium Chloride (Klor-Con M10) 10 meq QAM PO 07/02/17 09:00 08/01/17 08:59 07/03/17 09:14 10 MEQ Hydromorphone HCl (Dilaudid Inj) 1 mg Q3H PRN IV 07/02/17 06:00 07/16/17 05:59 Tamsulosin HCl (Flomax Cap) 0.4 mg DAILY PO 07/02/17 09:00 08/01/17 08:59 07/03/17 09:14 0.4 MG Ketorolac Tromethamine (Toradol Inj) 30 mg Q6H PRN IV 07/02/17 14:30 07/07/17 14:29 07/03/17 18:41 30 MG
[2017-07-03] MEDS: DOCUSATE SODIUM/SENNA 50/8.6MG TAB PO SCH (21:27)
[2017-07-03 22:53] VITALS: BP 104/58; PULSE 73; TEMP 36.9; O2SAT 98
[2017-07-04] MEDS: POLYETHYLENE (MIRALAX) 17 GM PACK PO SCH ×2 (05:42→12:00)
[2017-07-04 06:39] LABS: HEMATOCRIT 26.2 % (42-52); MEAN CELL VOLUME 87.3 fL (80-100); MEAN CORPUSCULAR HGB CONC 33.2 g/dl (32-36); MEAN PLATELET VOLUME 9.4 fL (7.4-10.4); PLATELET COUNT 183 K/uL (130-400); WHITE BLOOD COUNT 7.31 K/uL (4.8-10.8)
[2017-07-04 07:27] VITALS: BP 128/69; PULSE 72; TEMP 36.6; O2SAT 97
[2017-07-04 07:30] VITALS: O2SAT 97
[2017-07-04] MEDS: ASPIRIN 81 MG ECTAB PO SCH (08:35)
[2017-07-04] MEDS: TAMSULOSIN HCL 0.4 MG CAP PO SCH (08:35)
--- NOTE | 2017-07-04 08:35 | Discharge Summary ---
Orthopedic Discharge Summary Admission Date/Reason Jul 01, 2017 at 09:00 Lumbar Spinal Stenosis. Discharge Date/Disposition Jul 04, 2017 Home Diagnosis Principal Diagnosis: Lumbar spinal stenosis Admission Physical Exam As per Admitting History & Physical. Hospital Course Patient underwent multilevel lumbar decompression fusion tolerated as well as taken to the orthopedic floor postoperatively. Postoperative day #1 is up and ambulatory leg symptoms improved. He progressed to postoperative day #2. IRVIN drain decreased properly. Subsequently discharged home on posterior day #3. Discharge orders and instructions found the chart for further review. Discharge Instructions Please refer to the electronic Patient Visit Report (Discharge Instructions) for additional information.
[2017-07-04] MEDS: POTASSIUM CHLORIDE 10 MEQ TABCR PO SCH (08:36)
[2017-07-04] MEDS: FINASTERIDE 5 MG TAB PO SCH (08:36)
[2017-07-04] MEDS: ATORVASTATIN 40 MG TAB PO SCH (08:36)
[2017-07-04] MEDS: METOPROLOL SUCC 25MG EXT REL TAB PO SCH (08:36)
[2017-07-04] MEDS: FUROSEMIDE 20 MG TAB PO SCH (08:37)
[2017-07-04 10:30] VITALS: BP 128/69; PULSE 72; TEMP 36.6; O2SAT 97
[2017-07-04] MEDS: OXYCODONE HCL IR 5 MG TAB (IMMEDIATE RELEASE) PO PRN (13:46)
== END 2017-07-04 14:51 | disposition home or self-care (01) | DRG 460 ==
LOC: C.ACU 07:00 → C.3E 09:00 → ENRESERV 12:48
PROVIDERS: ADMIT Orthopaedic Surgery Orthopaedic Surgery of the Spine; ATTEND Orthopaedic Surgery Orthopaedic Surgery of the Spine
PROC: 0SG3071 Fusion of Lumbosacral Joint with Autologous Tissue Substitute, Posterior Approach, Posterior Column, Open Approach (ICD-10-PCS; principal; 2017-07-01 09:15)
PROC: 0SG1071 Fusion of 2 or more Lumbar Vertebral Joints with Autologous Tissue Substitute, Posterior Approach, Posterior Column, Open Approach (ICD-10-PCS; principal; 2017-07-01 09:15)
PROC: 3E0U0GB Introduction of Recombinant Bone Morphogenetic Protein into Joints, Open Approach (ICD-10-PCS; principal; 2017-07-01 09:15)
DX: M48.061 Spinal stenosis, lumbar region without neurogenic claudication (principal); Z68.41 Body mass index [BMI] 40.0-44.9, adult; M43.16 Spondylolisthesis, lumbar region; I10 Essential (primary) hypertension; I25.10 Atherosclerotic heart disease of native coronary artery without angina pectoris; I25.2 Old myocardial infarction; E78.5 Hyperlipidemia, unspecified; I25.5 Ischemic cardiomyopathy; G62.9 Polyneuropathy, unspecified; N40.0 Benign prostatic hyperplasia without lower urinary tract symptoms; E66.01 Morbid (severe) obesity due to excess calories; G47.33 Obstructive sleep apnea (adult) (pediatric); Z95.1 Presence of aortocoronary bypass graft; Z99.89 Dependence on other enabling machines and devices; Z96.641 Presence of right artificial hip joint; Z87.891 Personal history of nicotine dependence; Z79.82 Long term (current) use of aspirin; Z79.899 Other long term (current) drug therapy

== ENCOUNTER 2024-10-27 09:28 | Inpatient (IN) ==
--- NOTE | 2024-09-29 11:21 | PAT Medication Instructions ---
Medication Instructions Date of Service September 29, 2024 Home Medications ascorbic acid (vitamin C) 1,000 mg tablet (Vitamin C) 1 g PO HS aspirin 81 mg capsule 81 mg PO HS atorvastatin 40 mg tablet 40 mg PO HS finasteride 5 mg tablet 5 mg PO HS folic acid 1 mg tablet 1 mg PO HS furosemide 20 mg tablet 20 mg PO HS hydroxychloroquine 200 mg tablet 200 mg PO BID lysine 500 mg tablet (L-Lysine) 500 mg PO HS meloxicam 15 mg tablet 15 mg PO HS methotrexate sodium 2.5 mg tablet 25 mg PO Q7D metoprolol succinate 25 mg tablet,extended release 24 hr 25 mg PO HS omega-3 fatty acids 500 mg PO HS potassium chloride 10 mEq tablet,extended release (Klor-Con) 10 meq PO HS MEDICATION INSTRUCTIONS: ASK your surgeon for instructions meloxicam 15 mg tablet 15 mg PO HS ASK your prescriber and surgeon aspirin 81 mg capsule 81 mg PO HS STOP taking 2 weeks before surgery lysine 500 mg tablet (L-Lysine) 500 mg PO HS omega-3 fatty acids 500 mg PO HS Take morning of surgery With a small sip of water, OTHERWISE NOTHING TO EAT OR DRINK AFTER MIDNIGHT: hydroxychloroquine 200 mg tablet 200 mg PO BID Take evening before surgery ascorbic acid (vitamin C) 1,000 mg tablet (Vitamin C) 1 g PO HS atorvastatin 40 mg tablet 40 mg PO HS finasteride 5 mg tablet 5 mg PO HS folic acid 1 mg tablet 1 mg PO HS furosemide 20 mg tablet 20 mg PO HS hydroxychloroquine 200 mg tablet 200 mg PO BID metoprolol succinate 25 mg tablet,extended release 24 hr 25 mg PO HS potassium chloride 10 mEq tablet,extended release (Klor-Con) 10 meq PO HS Other Notes STOP taking 7 days before surgery: methotrexate sodium 2.5 mg tablet 25 mg PO Q7D If you have any questions please call us at [phone] or [phone] or [phone] or [phone]
--- NOTE | 2024-10-06 10:55 | Anesthesiology Consultation ---
Date of Service October 06, 2024 Assessment & Plan (1) Encounter for pre-operative examination: - awaiting surgeon ordered medical 10/14/24 Dr. Babatunde Castillo) and cardiology (Dr. Kellogg [facility]) clearances. - cardiology office visit 03/05/24: "...coronary artery disease...well controlled...ordered stress test at last visit given his history of CABG. Results as noted below, but essentially negative for ischemia...follow up 1 year..." Chart Review Chart Review: Pending: Refer to Additional Notes / Consult section and Patient seen in Pre Admission Testing Teaching & Discussion Pre-Anesthesia Teaching/Discussion Notes: Instructed NPO after midnight before surgery, except medications with 15 cc of water. Medication instructions provided according to the PAT guidelines. History Surgery Operation Date: 10/27/24 09:55 Proposed Procedures p Exploration Fusion L3 to S1, Possible Hardware Removal L2 to L3, Decompression Fusion L2 to L3 Connecting to Existing Hardware to S1 Spinal Cord Monitoring - Jaswant Hutchison, Height/Weight Height: 6 ft Weight: 140.8 kg Allergies Allergy/AdvReac Type Severity Reaction Status Date / Time No Known Allergies Allergy Verified 09/28/24 10:43 Medications Home Medications Medication Instructions Recorded Confirmed Last Taken ascorbic acid (vitamin C) 1,000 mg 1 g PO HS 09/28/24 09/28/24 Unknown tablet (Vitamin C) aspirin 81 mg capsule 81 mg PO HS 09/28/24 09/28/24 Unknown atorvastatin 40 mg tablet 40 mg PO HS 09/28/24 09/28/24 Unknown finasteride 5 mg tablet 5 mg PO HS 09/28/24 09/28/24 Unknown folic acid 1 mg tablet 1 mg PO HS 09/28/24 09/28/24 Unknown furosemide 20 mg tablet 20 mg PO HS 09/28/24 09/28/24 Unknown hydroxychloroquine 200 mg tablet 200 mg PO BID 09/28/24 09/28/24 Unknown lysine 500 mg tablet (L-Lysine) 500 mg PO HS 09/28/24 09/28/24 Unknown meloxicam 15 mg tablet 15 mg PO HS 09/28/24 09/28/24 Unknown methotrexate sodium 2.5 mg tablet 25 mg PO Q7D 09/28/24 09/28/24 Unknown metoprolol succinate 25 mg 25 mg PO HS 09/28/24 09/28/24 Unknown tablet,extended release 24 hr omega-3 fatty acids 500 mg PO HS 09/28/24 09/28/24 Unknown potassium chloride 10 mEq 10 meq PO HS 09/28/24 09/28/24 Unknown tablet,extended release (Klor-Con) Past Medical History Medical History (Updated 10/06/24 @ 11:16 by Kae Vernon PA-C) BPH (benign prostatic hyperplasia) CAD (coronary artery disease) s/p CABG x 3 2015 History of hypertension controlled, stable per pt Hx of hyperlipidemia Hx of psoriatic arthritis Hx of renal calculi no sx. Ischemic cardiomyopathy NSTEMI (non-ST elevated myocardial infarction) (~2015) Sleep apnea CPAP-compliant Patient denies h/o stroke, seizures, DM, blood clots/DVTs or blood transfusions. Exercise / Class Metabolic Activity II 4-5 Yardwork/Stairs/Walk up hill (denies chest discomfort or shortness of breath with one flight of stairs) Past Surgical History Surgical History History of surgical procedure on eye proper using laser bilat., for blocked tear ducts History of total left knee replacement 2022 History of total right hip replacement Hx of CABG 2016, triple bypass, ph cabrera; f/u dr. kellogg, ph [facility] cardiology Hx of colonoscopy Hx of lumbosacral spine surgery 2017, L2-L3?, [facility] Hx of tonsillectomy Past Anesthesia History No Hx of Anesthesia Complications and No Family Hx of Anesthesia Complications History of PONV No Hx of PONV and No Hx of Motion Sickness Social History Smoking Status: Former smoker Do You Dip or Chew Tobacco: No (quit 2016; advised) Hx Alcohol Use: Yes Alcohol type: beer alcohol intake frequency: holidays/special occasions only Hx Substance Use: No substance use type: does not use Review of Systems Patient denies chest pain, shortness of breath, dyspnea on exertion, reflux, fever, chills, cough, wheezing, or palpitations. Physical Exam Vital Signs Vitals BP 138/79 P 64 TEMP 97.6 SP02 95% on RA RESP 19 Physical Patient resting comfortably in chair in no acute distress, alert and oriented, responding appropriately throughout visit Full cervical extension range of motion without pain TMD 3 finger breadths Mallampati Score 3 Dentition: intact, denies chipped or loose teeth, caps/crowns, implants or bridges Lungs: normal respiratory effort. Good air movement, clear throughout to auscultation, no adventitious breath sounds Cardiac: regular rate and rhythm, no murmurs noted Carotid arteries: negative bruit bilat Lab Results Anesthesia Preop Results Results Anesthesia Widget: WBC 7.05 K/ul (4.8-10.8) 10/06/24 Hgb 13.1 g/dl (14.0-18.0) L 10/06/24 Hct 39.2 % (42.0-52.0) L 10/06/24 Plt 245 K/uL (130-400) 10/06/24 Na 140 mmol/L (136-145) 10/06/24 K 4.5 mmol/L (3.5-5.1) 10/06/24 Cl 107 mmol/L (98-107) 10/06/24 CO2 30 mmol/L (21-32) 10/06/24 BUN 31 mg/dl (6-23) H 10/06/24 Creat 1.16 mg/dl (0.6-1.4) 10/06/24 Glucose Level 114 mg/dl (70-99(Fasting)) H 10/06/24 PT 10.6 Seconds (9.0-12.0) 10/06/24 PTT 29 Seconds (21-31) 10/06/24 INR 1.0 (0.9-1.1) 10/06/24 Blood Type O Positive 10/06/24 Antibody Screen NEGATIVE 10/06/24 Testing Electrocardiogram Date: 10/06/24 NSR, rate 64 bpm Chest X-Ray Date: 10/06/24 No acute cardiopulmonary pathology seen. Echocardiogram Date: 03/09/22 EF 56% Mild cLVH No significant valvular pathology Stress Test Date: 02/12/24 MPHR 88% Negative for ischemia at the workload achieved LVEF 50-55% No obvious RWMA
[2024-10-27] MEDS: LR 15ML/HR IV SCH (09:40)
[2024-10-27] MEDS: GABAPENTIN 300 MG CAP PO SCH (10:03)
[2024-10-27] MEDS: CeleBREX 200 MG CAP PO SCH (10:03)
[2024-10-27] MEDS: ACETAMINOPHEN 500 MG TAB PO SCH (10:03)
[2024-10-27] MEDS: LR 60ML/HR IV SCH (10:03)
[2024-10-27] MEDS ORDERED: fentaNYL citrate PF 100 MCG/2 ML VIAL ONE ×3 (10:06→12:58)
[2024-10-27] MEDS ORDERED: ONDANSETRON INJ 2 MG/ML 2 ML VIAL ONE (10:06)
[2024-10-27] MEDS ORDERED: DEXAMETHASONE SOD INJ 4 MG/ML VIAL ONE (10:06)
[2024-10-27] MEDS ORDERED: LIDOCAINE 2% 2 ML VIAL/AMP(20MG/ML) INFIL ONE (10:06)
[2024-10-27] MEDS ORDERED: PROPOFOL IV EMULSION 10 MG/ML 20 ML VIAL IV ONE ×2 (10:06→13:35)
[2024-10-27] MEDS ORDERED: MIDAZOLAM HCL 1 MG/ML 2ML VIAL ONE (10:07)
[2024-10-27] MEDS ORDERED: ROCURONIUM BROMIDE 10 MG/ML 5 ML VIAL IV ONE ×3 (10:07→11:34)
[2024-10-27] MEDS ORDERED: PROMETHAZINE HCL 6.25 MG in SODIUM CHLORIDE 0.9% 50 ML IV PRN (10:18)
[2024-10-27] MEDS ORDERED: DROPERIDOL 5 MG/2 ML VIAL IV PRN (10:18)
[2024-10-27] MEDS ORDERED: HYDROmorphone INJ 2 MG/ML SYR/VIAL IV PRN (10:18)
[2024-10-27] MEDS ORDERED: ePHEDrine sulfate 50 MG/ML AMP IV PRN (10:18)
[2024-10-27] MEDS ORDERED: ATROPINE SULFATE 0.1 MG/ML 10ML SYR IV PRN (10:18)
--- NOTE | 2024-10-27 10:38 | History & Physical Bridge Note ---
Date of Service October 27, 2024 History & Physical Bridge Note I have examined the patient, reviewed the History & Physical and in the interval since the performance of the History & Physical I have noted the following changes of clinical significance: no changes noted
--- NOTE | 2024-10-27 10:40 | History & Physical Report ---
Date of Service October 27, 2024 Assessment & Plan (1) Multilevel lumbosacral spondylosis with radiculopathy: Plan: Expiration of fusion L3-S1 possible hardware removal, L2-L3 decompression, fusion L2-L3 connecting to existing hardware to S1 History of Present Illness Chief Complaint: Back and bilateral leg pain Primary Care Provider: Babatunde Jonathan patient has got chronic consistent back and bilateral leg pain after failing course of nonoperative care is here for surgical intervention. Allergies Allergy/AdvReac Type Severity Reaction Status Date / Time No Known Allergies Allergy Verified 10/27/24 09:40 Home Medications Medication Instructions Recorded Confirmed Type ascorbic acid (vitamin C) 1,000 mg 1 g PO HS 09/28/24 10/27/24 History tablet (Vitamin C) aspirin 81 mg capsule 81 mg PO HS 09/28/24 10/27/24 History atorvastatin 40 mg tablet 40 mg PO HS 09/28/24 10/27/24 History finasteride 5 mg tablet 5 mg PO HS 09/28/24 10/27/24 History folic acid 1 mg tablet 1 mg PO HS 09/28/24 10/27/24 History furosemide 20 mg tablet 20 mg PO HS 09/28/24 10/27/24 History hydroxychloroquine 200 mg tablet 200 mg PO BID 09/28/24 10/27/24 History lysine 500 mg tablet (L-Lysine) 500 mg PO HS 09/28/24 10/27/24 History meloxicam 15 mg tablet 15 mg PO HS 09/28/24 10/27/24 History methotrexate sodium 2.5 mg tablet 25 mg PO Q7D 09/28/24 10/27/24 History metoprolol succinate 25 mg 25 mg PO HS 09/28/24 10/27/24 History tablet,extended release 24 hr omega-3 fatty acids 500 mg PO HS 09/28/24 10/27/24 History potassium chloride 10 mEq 10 meq PO HS 09/28/24 10/27/24 History tablet,extended release (Klor-Con) Past Med/Surg History Problem List (Updated 10/27/24 @ 10:44 by Jaswant Hutchison DO) Multilevel lumbosacral spondylosis with radiculopathy Encounter for pre-operative examination BPH (benign prostatic hyperplasia) (Chronic) CAD (coronary artery disease) (Chronic) "04/2016 - CABG x 3" Medical History (Updated 10/27/24 @ 10:44 by Jaswant Hutchison, DO) Ischemic cardiomyopathy NSTEMI (non-ST elevated myocardial infarction) (~2016) Hx of renal calculi no sx. Hx of hyperlipidemia History of hypertension controlled, stable per pt Sleep apnea CPAP-compliant Hx of psoriatic arthritis CAD (coronary artery disease) s/p CABG x 3 2015 BPH (benign prostatic hyperplasia) Surgical History History of total left knee replacement 2022 Hx of lumbosacral spine surgery 2017, L2-L3?, [facility] Hx of colonoscopy History of surgical procedure on eye proper using laser bilat., for blocked tear ducts Hx of tonsillectomy Hx of CABG 2015, triple bypass, [facility]; f/u dr. 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
[2024-10-27] MEDS: ceFAZolin 3000MG 3,000 MG/72.5 ML BAG IV SCH (11:03)
[2024-10-27] MEDS ORDERED: PHENYLEPHRINE 100MCG/ML 5ML SYR ONE (11:42)
[2024-10-27] MEDS: ceFAZolin 330 MG/ML 1 GM VIAL ONE (11:44)
[2024-10-27] MEDS: BUPIVACAINE/EPINEPHRINE 0.25% 1:200,000 30 ML VIAL ONE (11:44)
[2024-10-27] MEDS ORDERED: ePHEDrine sulfate 50 MG/5 ML SYR ONE (11:54)
[2024-10-27] MEDS ORDERED: SUGAMMADEX SODIUM 200 MG/2 ML VIAL IV ONE (11:59)
[2024-10-27] MEDS: FLOSEAL HEMOSTATIC MATRIX 10ML TOP ONE (13:41)
--- NOTE | 2024-10-27 13:46 | Operative Report ---
Post Operative Report Pre & Post Diagnosis Operation Date: 10/27/24 10:55 Pre-Op Diagnosis: #1 lumbar spondylosis with radiculopathy #2 lumbar spinal stenosis #3 morbid obesity Post-Op Diagnosis: Same I identified the patient and participated in the time-out.: Yes Procedure Operation Date: 10/27/24 10:55 Actual Procedures #1 lumbar decompression of the bilateral medial facetectomies and foraminotomies L1-L2 L2-L3. #2 posterior spinal fusion L2-L3. #3 placed posterior instrumentation L2 with connectors at L3-L4 using medic Creo. #4 interbody fusion L to L3. #5 placement of Spira 14 x 26 mm at L2-L3. #6 placement locally harvested morselized autograft and posterior gutters. #7 placement infuse collagen sponge, with Koros in the posterior lateral gutters and os design interbody space. #9 application of versa wrap over the exposed dura. Surgeon Jaswant Hutchison, DO Fire Coordinator Keily Coto Estimated Blood Loss 1,500 Findings See Below The patient is 6 foot tall weighing over 140 kg with a BMI in excess of 41. This combined with an EBL of greater than 1000 cc. His significant technical difficulty adding these 50% increased operative time. I am recommending a modifier 22. Specimens None Indications This is a 69-year-old male who presents publish diagnosis of failing course of nonoperative care is here for surgical invention. Description of Procedure Patient was met with identified informed consent obtained. Patient was then taken to the operative suite underwent intubation placed in a prone position on the Dimas table on top of the Raul frame. All bony promises well-padded eyes inspected to ensure no external pressure placed upon them. This point the lumbar spine was prepped and draped normal sterile fashion. Sharp dissection with the assistance of Bovie cautery from down to and exposing the lamina transverse processes of L2 and the instrumentation at L3-L4 bilaterally. I then proceeded to perform a complete laminectomy of L2 with bilateral medial facetectomies and foraminotomies addressing severe subarticular and foraminal stenosis. This is followed by partial laminectomy of L1 with bilateral medial facetectomies addressing severe subarticular neural compression. Pedicle screws then placed in L2 and connectors attached to the rosa at L3-L4. By way to transfer approach on the right complete discectomy of L2-L3 was performed endplates guided to subcortical bleeding bone and a 14 x 26 mm spiral cage fille d with os design bone graft tapped in position. Appropriate size rods were then contoured and locked into position bilaterally. The transverse processes of L2 and L3 burred to subcortical being bone. Infuse collagen sponge, with Koros and local autograft placed in the posterior gutters. Versa wrap placed over the exposed dura. 15 round IRVIN drain inserted. The incision was then closed with 1 Vicryl in the fascia 2-0 Vicryl subcutaneously and 4 Monocryl for final skin closure. Steri-Strips sterile dressing placed. Patient waken taken to PACU in a stable condition. Please note spinal cord monitoring was utilized out the procedure no changes noted. Keily Coto was present at the entire surgery and while the patient positioning complex portion of the surgery and final skin closure. I attest to the content of the Intraoperative Record and any orders documented therein. Any exceptions are noted below.
--- NOTE | 2024-10-27 14:04 | Fluoroscopy Report ---
FL lumbar spine 2-3V CLINICAL HISTORY: L3-S1 EXPLORATION FUSION, L2-L3 DECOMP/F COMPARISON STUDY: Lumbar spine radiographs July 01, 2017. Lumbar spine MRI March 14, 2017. Fluoroscopy time: 17 seconds. Number of fluoroscopic images: 3 Ka,r: 33.09 mGy. FINDINGS: Fluoroscopy was provided during L2-L3 decompression and fusion with interbody spacer placem ent. Pre-existing hardware is partially imaged on this examination. Visualized hardware is intact. Th ere are no unexpected radiopaque foreign bodies. IMPRESSION: Fluoroscopy provided during interval L2-L3 decompression and fusion, as described above. ACT 112: Negative or not required by law. Electronically signed by: Joe Zee M.D. 10/27/2024 2:03 PM
[2024-10-27] MEDS ORDERED: hydrOXYzine HCl 25 MG TAB PO PRN (14:55)
[2024-10-27] MEDS ORDERED: DO NOT ADMINISTER FLU VACCINE PRN (14:55)
[2024-10-27] MEDS ORDERED: LORazepam 0.5 MG TAB PO PRN (14:55)
[2024-10-27] MEDS ORDERED: ACETAMINOPHEN 1,000 MG/100 ML VIAL IV PRN (14:55)
[2024-10-27] MEDS ORDERED: HYDROmorphone INJ 1 MG/ML SYRINGE IV PRN (14:55)
[2024-10-27] MEDS ORDERED: ONDANSETRON INJ 2 MG/ML 2 ML VIAL IV PRN (14:55)
[2024-10-27] MEDS ORDERED: bisacodyL 10 MG SUPP PR PRN (14:55)
[2024-10-27] MEDS ORDERED: METOCLOPRAMIDE HCL INJ 5 MG/ML 2 ML VIAL IV PRN (14:55)
[2024-10-27] MEDS ORDERED: FAMOTIDINE 20 MG TAB PO PRN (14:55)
[2024-10-27] MEDS ORDERED: ONDANSETRON 4 MG OD TAB PO PRN (14:55)
[2024-10-27] MEDS ORDERED: diphenhydrAMINE Capsule 25 MG CAP PO PRN (14:55)
[2024-10-27] MEDS ORDERED: SOD PHOSPHATE/SOD BIPHOSPHATE ENEMA 132 ML BTL PR PRN (14:55)
[2024-10-27] MEDS ORDERED: LORazepam 2 MG/1 ML VIAL IV PRN (14:55)
[2024-10-27] MEDS ORDERED: MAGNESIUM HYDROXIDE SUSP 30 ML UDC PO PRN (14:55)
[2024-10-27] MEDS ORDERED: NALOXONE HCL 0.4 MG/1 ML VIAL/CARP IV PRN (14:55)
[2024-10-27] MEDS ORDERED: HYDROmorphone INJ 0.5 MG/0.5 ML SYR IV PRN (14:55)
[2024-10-27] MEDS ORDERED: traMADol HCL 50 MG TABLET PO PRN (14:55)
[2024-10-27] MEDS ORDERED: DO NOT ADMINISTER PNEUMOCOCCAL VACCINE PRN (14:55)
[2024-10-27] MEDS ORDERED: ALUMINUM/MAGNESIUM SUSP 30 ML UDC PO PRN (14:55)
[2024-10-27] MEDS ORDERED: PROMETHAZINE 12.5 MG/50.5 ML BAG IV PRN (14:55)
[2024-10-27] MEDS ORDERED: oxyCODONE HCL IR 5 MG TAB (IMMEDIATE RELEASE) PO PRN (14:55)
--- NOTE | 2024-10-27 15:24 | Anesthesiology Progress Note ---
Date of Service October 27, 2024 Anesthesia Post Procedure Vital Signs Vital Signs: Temp Pulse Pulse Resp BP Pulse Ox O2 Del Method 10/27/24 14:55 36.5 C 73 16 126/69 95 Room Air 10/27/24 14:35 71 12 106/61 93 Room Air 10/27/24 14:25 36.7 C 70 19 105/72 97 Oxymask 10/27/24 14:15 69 20 127/67 95 Oxymask 10/27/24 14:05 68 12 112/65 96 Oxymask 10/27/24 13:56 36.2 C L 71 20 102/73 94 Oxymask 10/27/24 09:48 36.4 C L 72 20 159/79 H 95 Room Air O2 Flow Rate 10/27/24 14:55 10/27/24 14:35 0 10/27/24 14:25 2 10/27/24 14:15 4 10/27/24 14:05 8 10/27/24 13:56 12 10/27/24 09:48 Pain Intensity Lower Back: Pain Intensity: 2 Transfer of Care Handoff Completed per policy Notes Mental Status: alert / awake / arousable and participated in evaluation Nausea / Vomiting: adequately controlled Pain: adequately controlled Airway Patency, RR, SpO2: stable & adequate BP & HR: stable & adequate Hydration State: stable & adequate Anesthetic Complications: no major complications apparent and Pt Satisfied with anesthetic care
[2024-10-27] MEDS: ACETAMINOPHEN 500 MG TAB PO PRN (15:59)
[2024-10-27] MEDS: ceFAZolin 2000MG 2,000 MG/15 ML SYR IV SCH (19:17)
[2024-10-27] MEDS: POTASSIUM CHLORIDE 10 MEQ TABCR PO SCH (20:46)
[2024-10-27] MEDS: FUROSEMIDE 20 MG TAB PO SCH (20:46)
[2024-10-27] MEDS: METOPROLOL SUCC 25MG EXT REL TAB PO SCH (20:46)
[2024-10-27] MEDS: ASCORBIC ACID 500 MG TAB PO SCH (20:46)
[2024-10-27] MEDS: FINASTERIDE 5 MG TAB PO SCH (20:46)
[2024-10-27] MEDS: DOCUSATE SODIUM/SENNA 50/8.6MG TAB PO SCH (20:46)
[2024-10-27] MEDS: HYDROXYCHLOROQUINE SULFATE 200 MG TAB PO SCH (20:46)
[2024-10-27] MEDS: ASPIRIN 81 MG ECTAB PO SCH (20:47)
[2024-10-27] MEDS: FOLIC ACID 1 MG TAB PO SCH (20:47)
[2024-10-27] MEDS: ATORVASTATIN 40 MG TAB PO SCH (20:47)
[2024-10-27] MEDS ORDERED: NON-FORMULARY MEDICATION (Lysine [L-Lysine] 500 mg Tablet) PO SCH (21:00)
[2024-10-28] MEDS: POLYETHYLENE (MIRALAX) 17 GM PACK PO SCH (06:06)
[2024-10-28 06:27] LABS: Basophils # (auto) 0.02 K/uL (0.00-0.20); Basophils % (auto) 0.2 %; Eosinophils # (auto) 0.02 K/uL (0.00-0.50); Eosinophils % (auto) 0.2 %; Hematocrit (blood only) 31.8 % (42.0-52.0); Hemoglobin 10.7 g/dl (14.0-18.0); Immature Granulocytes # (auto) 0.04 K/uL (0.01-0.20); Immature Granulocytes % (auto) 0.4 %; Lymphocytes # (auto) 0.72 K/uL (1.20-3.40); Lymphocytes % (auto) 7.6 %; Mean Corpuscular Hemoglobin 30.5 pg (25.0-34.0); Mean Corpuscular Hgb Conc 33.6 g/dL (32.0-36.0); Mean Corpuscular Volume 90.6 fL (80.0-100.0); Mean Platelet Volume 9.4 fL (9.4-12.4); Monocytes # (auto) 0.98 K/uL (0.11-0.59); Monocytes % (auto) 10.3 %; Neutrophils % (auto) 81.3 %; Platelet Count 202 K/uL (130-400); RDW Coefficient of Variation 12.8 % (11.5-14.5); RDW Standard Deviation 41.9 fL (36.4-46.3); Red Blood Count 3.51 M/uL (4.70-6.10); White Blood Count 9.48 K/ul (4.8-10.8)
[2024-10-28 06:45] LABS: BUN Creatinine Ratio 21.2 (10-20); Calcium 8.2 mg/dl (8.6-10.3); Creatinine Clr Calc Pharmacy 90.9 ml/min; Potassium 4.2 mmol/L (3.5-5.1)
[2024-10-28] MEDS: dexAMETHasone 6 MG in SYRINGE 0 ML IV SCH (09:05)
--- NOTE | 2024-10-28 09:34 | Orthopedic Progress Note ---
Date of Service October 28, 2024 Assessment & Plan (1) Multilevel lumbosacral spondylosis with radiculopathy: Plan: At this time we will continue physical therapy monitor his IRVIN operatively discharge home next few days. Admission and Anticipated Discharge Date Admission Date: October 27, 2024 Subjective Back pain is controlled leg symptoms markedly improved Physical Exam Physical Exam: Patient in the chair at the bedside. Good strength testing. Comfortable. Results & Data Vital Signs (Past 12 Hours) Vital Signs Temp Pulse Pulse Resp BP BP Pulse Ox 10/28/24 08:00 36.6 C 66 18 120/70 94 10/28/24 07:12 36.5 C 66 18 122/71 95 10/28/24 03:06 36.5 C 67 16 133/81 94 10/27/24 23:25 36.8 C 68 16 112/63 95 O2 Del Method 10/28/24 08:00 Room Air 10/28/24 07:12 Room Air 10/28/24 03:06 Room Air 10/27/24 23:25 Room Air
--- NOTE | 2024-10-28 11:04 | Consultation ---
Date of Consultation October 28, 2024 Assessment & Plan (1) Multilevel lumbosacral spondylosis with radiculopathy: (2) CAD (coronary artery disease): (3) Sleep apnea: (4) Hx of psoriatic arthritis: (5) History of hypertension: (6) Acute blood loss as cause of postoperative anemia: Plan This is a 69 yr old M who has a significant PMH of CAD with hx of CABG x 3 in 2016, ischemic cardiomyopathy, HTN, HLD, KATE, Psoriatic arthritis and BPH who presents for elective lumbar procedure by Dr. Hutchison. #S/P L2-L3 decompression and fusion by Dr. Hutchison, POD #1 EBL 1500ml tolerated procedure well pain/wound management per ortho activity/therapy as per ortho encourage incentive spirometry #Acute blood loss anemia as cause of post operative anemia, likely dilutional component as well pre op hgb 13.1, post op 10.7 EBL 1500ml with continued IRVIN drain outpt continue to monitor hgb no indication for transfusion at this time cbc, bmp ordered for a.m. 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 Castillo FULL CODE Pt was seen and examined in collaboration with Dr. Arguelles, please see addendum I spent a total of 35 minutes coordinating, documenting and providing care for this patient excluding time spent in the performance of separately billed services or time spent by another provider/QHP. Thank you for this consultation. We will follow the patient with you during their hospital stay. You can reach a member of the [facility] Hospitalist Team 18/02 via hospitalist role on tiger text. Supervising Physician Co-Signing Physician Notes Pt was seen and examined by myself, Janie Arguelles MD on the day of service. Care was coordinated with Chata Harris PA-C. 69yoM with PMHx significant for Hx of lumbar radiculopathy, CAD with Hx of CABG, cardiomyopathy, KATE, BPH, HLD, chronic anemia, psoriatic arthritis presenting for L2-L3 decompression and fusion with ortho spine surgeon Dr. Hutchison. On exam AAOx3, resting comfortably in the chair near the bed. Notes that he has been up and walking the halls. Denied dizziness, chest pain, SOB or palpitations. RRR, Breath sounds clear, trace edema in lower extremities Postop care per primary team Acute on chronic Anemia, monitor Hgb postop, transfuse as needed CAD s/p CABG- stable at this time KATE- continue home CPAP Psoriatic arthritis-per primary for meds while hospitalized. Otherwise as above. I spent a total [id number] coordinating, documenting, and providing care for this patient excluding time spent in the performance of separately billed services History of Present Illness Requesting Physician: Dr. Hutchison Reason for Consultation: Post op medical management Attending Physician: Jaswant Hutchison, DO History of Present Illness This is a 69 yr old M who has a significant PMH of CAD with hx of CABG x 3 in 2016, ischemic cardiomyopathy, HTN, HLD, KATE, Psoriatic arthritis and BPH who presents for elective lumbar procedure by Dr. Hutchison. He underwent an L3-S1 exploration with L2-L3 decompression/fusion. He had a total EBL of 1500ml. His pre op medical records were reviewed. He follows with [facility] cardiology in [place]. His last exercise stress echo was done on 02/12/24 which was negative for inducible ischemia. His last echo was in 2021 which showed an EF of 56%. He is medically managed with ASA, Statin and BB. He feels well post operatively. He is up and ambulating in his room w/o assist device. He has some incisional pain, but otherwise no radicular sx. He denies f/c/s, chest pain, sob, n/v/d. He reports being very active at home in his yard. Denies any exertional CP/SOB. He reports some SOB due to his weight, but nothing out of the ordinary. He has been compliant with his CPAP. He follows with rheumatology, but reports his renal social worker just and he will need to locate another one. He is hopeful to d/c tomorrow. Hx obtained from pt and external chart review. Allergies Allergy/AdvReac Type Severity Reaction Status Date / Time No Known Allergies Allergy Verified 10/27/24 09:40 Home Medications Medication Instructions Recorded Confirmed Type ascorbic acid (vitamin C) 1,000 mg 1 g PO HS 09/28/24 10/27/24 History tablet (Vitamin C) aspirin 81 mg capsule 81 mg PO HS 09/28/24 10/27/24 History atorvastatin 40 mg tablet 40 mg PO HS 09/28/24 10/27/24 History finasteride 5 mg tablet 5 mg PO HS 09/28/24 10/27/24 History folic acid 1 mg tablet 1 mg PO HS 09/28/24 10/27/24 History furosemide 20 mg tablet 20 mg PO HS 09/28/24 10/27/24 History hydroxychloroquine 200 mg tablet 200 mg PO BID 09/28/24 10/27/24 History lysine 500 mg tablet (L-Lysine) 500 mg PO HS 09/28/24 10/27/24 History meloxicam 15 mg tablet 15 mg PO HS 09/28/24 10/27/24 History methotrexate sodium 2.5 mg tablet 25 mg PO Q7D 09/28/24 10/27/24 History metoprolol succinate 25 mg 25 mg PO HS 09/28/24 10/27/24 History tablet,extended release 24 hr omega-3 fatty acids 500 mg PO HS 09/28/24 10/27/24 History potassium chloride 10 mEq 10 meq PO HS 09/28/24 10/27/24 History tablet,extended release (Klor-Con) oxycodone 5 mg tablet 5 mg PO Q6H PRN pain #30 tabs 10/28/24 Rx tramadol 50 mg tablet 50 mg PO Q6H PRN pain, moderate 10/28/24 Rx #30 tabs Patient History Medical History Ischemic cardiomyopathy NSTEMI (non-ST elevated myocardial infarction) (~2015) Hx of renal calculi no sx. Hx of hyperlipidemia History of hypertension controlled, stable per pt Sleep apnea CPAP-compliant Hx of psoriatic arthritis CAD (coronary artery disease) s/p CABG x 3 2015 BPH (benign prostatic hyperplasia) Surgical History History of total left knee replacement 2022 Hx of lumbosacral spine surgery 2017, L2-L3?, [facility] Hx of colonoscopy History of surgical procedure on eye proper using laser bilat., for blocked tear ducts Hx of tonsillectomy Hx of CABG 2016, triple bypass, ph cabrera; f/u dr. mitchell, [facility] History of total right hip replacement Social History Smoking Status: Former smoker Second Hand Exposure: Yes (hx growing up); Do You Dip or Chew Tobacco: No (quit 2016; advised); Tobacco Cessation Education Requested by Patient: No Hx Alcohol Use: Yes Alcohol type: beer Hx Substance Use: No Preferred Language: Cymraes Communication Ability: Effective Information And Data Architect Analyst Required: No Beliefs That Will Affect Care: None Current Living Situation: Spouse Other Information That Helps Us Care for You: No Feels Safe at Home: Yes Safety Concerns: Feels Safe At This Time Assistive Devices: CPAP Review of Systems Review of Systems: All systems reviewed & are unremarkable except as noted in HPI & below Physical Exam Physical Exam: Constitutional: WD/WN, vitals as above, NAD, sitting up in bed, pleasant, conversing easily Head: Normocephalic, Atraumatic Eyes: PERRL, conjunctivae normal, anicteric sclerae ENMT: external ear and nose normal, oropharynx normal Neck: trachea midline, no thyromegaly normal visual inspection Respiratory: normal respiratory effort, lungs clear to auscultation, no wheeze, rales, rhonchi. Normal insp/exp effort, no accessory muscle use Cardiovascular: RRR, no murmur, no edema Vessels: no JVD or carotid bruit Chest: normal inspection of chest Abdomen: protuberant abd, normal bowel sounds, soft, nontender Musculoskeletal: no cyanosis or clubbing, ambulating around the room Skin: no rashes, warm and dry normal turgor Neurologic: no face palsy, no dysarthria CN's II-XI intact bilaterally and moves all extremities Psychiatric: A+Ox3, euthymic affect Results & Data Vital Signs (Past 12 Hours) Vital Signs Temp Pulse Pulse Resp BP BP Pulse Ox 10/28/24 08:00 36.6 C 66 18 120/70 94 10/28/24 07:12 36.5 C 66 18 122/71 95 10/28/24 03:06 36.5 C 67 16 133/81 94 10/27/24 23:25 36.8 C 68 16 112/63 95 O2 Del Method 10/28/24 08:00 Room Air 10/28/24 07:12 Room Air 10/28/24 03:06 Room Air 10/27/24 23:25 Room Air Laboratory Results I have independently reviewed and interpreted patient's admitting labs including CBC, BMP, PT/INR Diagnostic Findings Lumbar Spine X-Ray 10/27/24 00:00 FL lumbar spine 2-3V CLINICAL HISTORY: L3-S1 EXPLORATION FUSION, L2-L3 DECOMP/F COMPARISON STUDY: Lumbar spine radiographs July 01, 2017. Lumbar spine MRI March 14, 2017. Fluoroscopy time: 17 seconds. Number of fluoroscopic images: 3 Ka,r: 33.09 mGy. FINDINGS: Fluoroscopy was provided during L2-L3 decompression and fusion with interbody spacer placement. Pre-existing hardware is partially imaged on this examination. Visualized hardware is intact. There are no unexpected radiopaque foreign bodies. IMPRESSION: Fluoroscopy provided during interval L2-L3 decompression and fusion, as described above. ACT 112: Negative or not required by law. Electronically signed by: Joe Zee M.D. 10/27/2024 2:03 PM Medications Administered Current Inpatient Medications Acetaminophen (Acetaminophen 500 Mg Tab) 1,000 mg PO Q8H PRN PRN Reason: MILD Pain Scale 1,2,3 & Pre PT Stop: 11/26/24 14:54 Last Admin: 10/28/24 03:03 Dose: 1,000 mg Al Hydrox/Mg Hydrox/Simethicone (Aluminum/Magnesium Susp 30 Ml Udc) 30 ml PO Q6H PRN PRN Reason: Dyspepsia Stop: 11/26/24 14:54 Ascorbic Acid (Ascorbic Acid 500 Mg Tab) 1,000 mg PO HS OBINNA Stop: 11/26/24 20:59 Last Admin: 10/27/24 20:46 Dose: 1,000 mg Aspirin (Aspirin 81 Mg Ectab) 81 mg PO HS OBINNA Stop: 11/26/24 20:59 Last Admin: 10/27/24 20:47 Dose: 81 mg Atorvastatin Calcium (Atorvastatin 40 Mg Tab) 40 mg PO HS OBINNA Stop: 11/26/24 20:59 Last Admin: 10/27/24 20:47 Dose: 40 mg Bisacodyl (Bisacodyl 10 Mg Supp) [address] DAILY PRN PRN Reason: Constipation Stop: 11/26/24 14:54 Diphenhydramine HCl (Diphenhydramine Capsule 25 Mg Cap) 25 mg PO Q6H PRN PRN Reason: Allergic Rhinitis/Insomnia Stop: 11/26/24 14:54 Famotidine (Famotidine 20 Mg Tab) 20 mg PO Q12H PRN PRN Reason: Dyspepsia Stop: 11/26/24 14:54 Finasteride (Finasteride 5 Mg Tab) 5 mg PO [facility] Stop: 11/26/24 20:59 Last Admin: 10/27/24 20:46 Dose: 5 mg Folic Acid (Folic Acid 1 Mg Tab) 1 mg PO HS [facility] Stop: 11/26/24 20:59 Last Admin: 10/27/24 20:47 Dose: 1 mg Furosemide (Furosemide 20 Mg Tab) 20 mg PO HS [facility] Stop: 11/26/24 20:59 Last Admin: 10/27/24 20:46 Dose: 20 mg Hydromorphone HCl (Hydromorphone Inj 0.5 Mg/0.5 Ml Syr) 0.5 mg IV Q3H PRN PRN Reason: MODERATE Pain (Scale 4,5,6) & Pre PT Stop: 11/10/24 14:54 Hydromorphone HCl (Hydromorphone Inj 1 Mg/Ml Syringe) 1 mg IV Q3H PRN PRN Reason: SEVERE Pain (Scale 7,8,9,10) Stop: 11/10/24 14:54 Hydroxychloroquine Sulfate (Hydroxychloroquine Sulfate 200 Mg Tab) 200 mg PO BID OBINNA Stop: 11/26/24 20:59 Last Admin: 10/28/24 09:05 Dose: 200 mg Hydroxyzine HCl (Hydroxyzine Hcl 25 Mg Tab) 25 mg PO Q8H PRN PRN Reason: Anxiety Stop: 11/26/24 14:54 Acetaminophen (Ofirmev) 1,000 mg in 100 mls @ 400 mls/hr IV Q8H PRN PRN Reason: Pain Rating 1-3 & Pre PT Stop: 10/28/24 14:55 Promethazine HCl (Phenergan) 12.5 mg in 50.5 mls @ 202 mls/hr IV Q6H PRN PRN Reason: Nausea And Vomiting Stop: 11/26/24 14:54 Dexamethasone 6 mg/ Syringe 1.5 mls @ 1 mls/min IV DAILY@0900 [facility] Stop: 10/30/24 09:02 Last Admin: 10/28/24 09:05 Dose: 1 mls/min Influenza Virus Vaccine Quadrival (Do Not Administer Flu Vaccine) 1 each N/A PRN PRN PRN Reason: Notification Stop: 11/26/24 14:54 Lorazepam (Lorazepam 0.5 Mg Tab) 0.5 mg PO Q8H PRN PRN Reason: Sedation/Anxiety Stop: 11/26/24 14:54 Lorazepam (Lorazepam 2 Mg/1 Ml Vial) 0.5 mg IV Q8H PRN PRN Reason: Sedation/Anxiety Stop: 11/26/24 14:54 Magnesium Hydroxide (Magnesium Hydroxide Susp 30 Ml Udc) 30 ml PO Q24H PRN PRN Reason: Constipation Stop: 11/26/24 14:54 Metoclopramide HCl (Metoclopramide Hcl Inj 5 Mg/Ml 2 Ml Vial) 10 mg IV Q6H PRN PRN Reason: Nausea &/or Vomiting Stop: 11/26/24 14:54 Metoprolol Succinate (Metoprolol Succ 25mg Ext Rel Tab) 25 mg PO HS [facility] Stop: 11/26/24 20:59 Last Admin: 10/27/24 20:46 Dose: 25 mg Naloxone HCl (Naloxone Hcl 0.4 Mg/1 Ml Vial/Carp) 0.1 mg IV Q5M PRN PRN Reason: Oversedation/Resp depression Stop: 11/26/24 14:54 Ondansetron HCl (Ondansetron Inj 2 Mg/Ml 2 Ml Vial) 4 mg IV Q6H PRN PRN Reason: Nausea &/or Vomiting Stop: 11/26/24 14:54 Ondansetron HCl (Ondansetron 4 Mg Od Tab) 4 mg PO Q6H PRN PRN Reason: Nausea Stop: 11/26/24 14:54 Oxycodone HCl (Oxycodone Hcl Ir 5 Mg Tab (Immediate Release)) 5 - 10 mg PO Q4H PRN PRN Reason: Pain & Pre PT Stop: 11/10/24 14:54 Pneumococcal Polyvalent Vaccine (Do Not Administer Pneumococcal Vaccine) 1 each N/A PRN PRN PRN Reason: Notification Stop: 11/26/24 14:54 Polyethylene Glycol (Polyethylene (Miralax) 17 Gm Pack) 17 gm PO Q6 OBINNA Stop: 11/27/24 05:59 Last Admin: 10/28/24 06:06 Dose: 17 gm Potassium Chloride (Potassium Chloride 10 Meq Tabcr) 10 meq PO HS OBINNA Stop: 11/26/24 20:59 Last Admin: 10/27/24 20:46 Dose: 10 meq Senna/Docusate Sodium (Docusate Sodium/Senna 50/8.6mg Tab) 2 tab PO HS OBINNA Stop: 11/26/24 20:59 Last Admin: 10/27/24 20:46 Dose: 2 tab Sodium Biphosphate/Sodium Phosphate (Sod Phosphate/Sod Biphosphate Enema 132 Ml Btl) [address] ONE PRN PRN Reason: Constipation Stop: 11/26/24 14:54 Tramadol HCl (Tramadol Hcl 50 Mg Tablet) 50 - 100 mg PO Q4H PRN PRN Reason: Moderate-Severe pain & Pre PT Stop: 11/26/24 14:54 ECG Additional Comments: I have independently reviewed and interpreted patient's admitting EKG which revealed: 64bpm, nsr, qtc 447ms
[2024-10-28 20:15] VITALS: TEMP 97.7
[2024-10-29 07:00] LABS: Hematocrit (blood only) 31.1 % (42.0-52.0); Hemoglobin 10.4 g/dl (14.0-18.0); Mean Corpuscular Hemoglobin 30.3 pg (25.0-34.0); Mean Corpuscular Hgb Conc 33.4 g/dL (32.0-36.0); Mean Corpuscular Volume 90.7 fL (80.0-100.0); Mean Platelet Volume 9.5 fL (9.4-12.4); Platelet Count 211 K/uL (130-400); RDW Standard Deviation 42.7 fL (36.4-46.3); Red Blood Count 3.43 M/uL (4.70-6.10)
[2024-10-29 07:14] LABS: BUN Creatinine Ratio 26.5 (10-20); Calcium 8.7 mg/dl (8.6-10.3); Creatinine Clr Calc Pharmacy 104.8 ml/min; Potassium 4.3 mmol/L (3.5-5.1)
[2024-10-29 07:32] VITALS: BP 132/78; PULSE 66; RESP 16; O2SAT 95
--- NOTE | 2024-10-29 08:18 | Discharge Summary ---
Date of Service October 29, 2024 Admission HPI Per Admitting Provider patient has got chronic consistent back and bilateral leg pain after failing course of nonoperative care is here for surgical intervention. Principal Diagnosis Lumbar spondylosis with radiculopathy Discharge Data Allergies Allergy/AdvReac Type Severity Reaction Status Date / Time No Known Allergies Allergy Verified 10/27/24 09:40 Consultations 10/27/24 14:55 Consult Hospitalist Routine Procedures Performed Operation Date: 10/27/24 10:55 Actual Procedures p L2-L3 Decompression and Fusion, Interbody Fusion L2-L3(Not Applicable) - Jaswant Hutchison DO Ordered Studies 10/27/24 [place] lumbar spine 2-3V Routine Hospital Course (1) Multilevel lumbosacral spondylosis with radiculopathy: Patient with lumbar decompression fusion tolerated this well was taken to orthopedic for postoperative. Postop he progressed appropriate. Marked improvement of his leg pain. IRVIN drain decreasing. Extra strength testing. Pain controlled. Subsidy discharged home. Discharge orders instructions from the chart for further review. Total Time Total Time Spent Total Time Spent (In Minutes): 20 minutes Discharge Plan Discharge Items Patient Disposition: Home - Self-Care Reason For Visit: Lumbar Disc Disease with Radiculopathy, Other Spon Discharge Diagnosis: Lumbar spondylosis with radiculopathy Activity: As commented below Non-emergency contact: Primary Care Provider Call non-emergency contact if: you have any medication questions Follow-up/Referrals: Babatunde Castillo [Primary Care Provider] - Diet: Regular Addtl Attending Provider Instructions: ACTIVITY RECOMMENDATIONS: SELF CARE INSTRUCTIONS AFTER THORACIC/LUMBAR FUSIONS 1. You may walk to your tolerance. It is good exercise for your legs and back. Expect some back and intermittent leg aches and pains. 2. You may perform "counter-top" level activities (make a sandwich, lenore with a project, etc.). 3. No bending or lifting of more than 10 pounds or back twisting of any nature (roll like a log when turning in bed). 4. You may ride in a car for 20-30 minutes at a time. No driving until after your first visit with your doctor. 5. Frequent changes of position and restricting sitting to 30 minutes at a time will help limit the amount of back spasms and stiffness you may experience. 6. You may discontinue the use of ambulatory aids (cane, crutches, etc.) once your strength and confidence allow. 7. You may certified industrial hygienist the shower and let water strike your incision when you arrive home at least once daily. Do not take a tub bath, sit in a hot tub or go into a swimming pool until after your first recheck in the office. 8. You may resume previous diet. SPECIAL CARE INSTRUCTIONS: VERY IMPORTANT TO READ AND REVIEW A. Your surgical incision has been closed with a cosmetic suture under the skin that will dissolve in about 6 weeks. In 14 days, you can use a pair of clean scissors and cut the suture that is left outside of the skin at the ends of your incision. 1. The small skin tapes can be removed 7 days after surgery if they have not fallen off by that point. 2. You may keep the wound open to air as much as possible to promote healing after post-op day number 5 unless told otherwise by your doctor. 3. If you think the wound looks like it is becoming infected (redness or worsening drainage) and/or you are experiencing fever, chill or worsening back pain and muscle spasms, contact the office so that we may evaluate you as soon as possible. B. Complications are uncommon, but please contact us if you have any signs or symptoms of: 1. wound infection (fever higher than 102.5 degrees F, redness, separation of wound, drainage, or increasing pain from the incision) 2. blood clots in legs (pain, swelling, redness and warmth in legs) 3. urinary tract infection (fever higher than 102.5 degrees F, burning upon urination or increased frequency of urination) 4. nerve problems (inability to walk on your toes or heels, numbness, loss of bowel or bladder control) 5. any other symptoms that concern you C. Please call the office at if you have any concerns or questions about your operation or recovery. D. No smoking! Smoking drastically decreases the chance of a solid fusion. E. Do not take any anti-inflammatory medications (Indocin, Advil, Motrin, Aspirin, Naprosyn, etc.) as these may inhibit the chance of a solid fusion. Tylenol is okay to take for pain. MANAGING PAIN AFTER SPINAL SURGERY 1. Narcotic medication is intended for short-term use and will be provided for surgical pain. Surgical pain usually lasts for a period of 4-6 weeks. Narcotic medication includes Percocet, Vicodin, Darvocet, Tylenol #3 or Lortab. 2. Longer-term pain is more appropriately treated with non-narcotic medication such as Tylenol ES. 3. Muscle spasm is not appropriately treated with narcotics. Muscle relaxers such as Soma, Flexeril or Skelaxin can be used along with Tylenol ES. 4. Remember that we all live with some "aches and pains". This is not unusual or uncommon after an injury or as we get older. a. Back pain is expected and may include muscle spasms for 4 to 6 weeks after surgery. The pain should gradually improve. If the pain worsens for no apparent reason, please contact the office. b. Intermittent leg pain may also be experienced and should not be concerned about unless it worsens for no apparent reason. If so, please contact the office. 5. We will provide appropriate medication within the normal guidelines of their prescribed use. We will also be very cautious and aware of potential abuse and extended duration of patients' medication needs. a. Pain medications are for your comfort and to assist with sleep and rest so that the tissue can heal. They are not provided in order to return to normal activity and should not be used through the day. To do so or worsening pain at night can result from ongoing tissue damage and development of tolerance to the prescribed medicine. 6. Please allow 2-3 days to process refills. Prescriptions will not be mailed but must be picked up at the office. FOLLOW UP VISIT: Keep your scheduled follow-up appointment. Any questions, please call the office at . Pending Studies at Discharge: No Stand-Alone Forms: [facility], Smoking Cessation Medications and DC Order Prescriptions: New tramadol 50 mg tablet 50 mg PO Q6H PRN (Reason: pain, moderate) Qty: 30 0RF oxycodone 5 mg tablet 5 mg PO Q6H PRN (Reason: pain) Qty: 30 0RF Continued atorvastatin 40 mg Tablet 40 mg PO HS ascorbic acid (vitamin C) [Vitamin C] 1,000 mg Tablet 1 g PO HS meloxicam 15 mg Tablet 15 mg PO HS potassium chloride [Klor-Con 10] 10 mEq Tablet Extended Release 10 meq PO HS methotrexate sodium [Methotrexate (Anti-Rheumatic)] 2.5 mg Tablet 25 mg PO Q7D Patient Comments: mondays folic acid 1 mg Tablet 1 mg PO HS furosemide 20 mg Tablet 20 mg PO HS metoprolol succinate 25 mg Tablet Extended Release 24 Hr 25 mg PO HS hydroxychloroquine 200 mg Tablet 200 mg PO BID lysine [L-Lysine] 500 mg Tablet 500 mg PO HS finasteride 5 mg Tablet 5 mg PO HS Fish Oil Capsule 500 mg PO HS aspirin 81 mg Capsule 81 mg PO HS Discharge Orders: Discharge Order (Routine); Ordered 10/29/24 Ordered By: Jaswant Hutchison Admission Data Admit Date/Time: 10/27/24 13:49 Attending Provider: Jaswant Hutchison Admit Provider: Jaswant Hutchison Primary Care Provider: Babatunde Castillo Other Providers: Sveta Rg; Leif Escobedo
--- NOTE | 2024-10-29 13:05 | Hospitalist Progress Note ---
Date of Service October 29, 2024 Assessment & Plan (1) Multilevel lumbosacral spondylosis with radiculopathy: (2) CAD (coronary artery disease): (3) Sleep apnea: (4) Hx of psoriatic arthritis: (5) History of hypertension: (6) Acute blood loss as cause of postoperative anemia: Plan per previous hospitalist notes with addendum: This is a 69 yr old M who has a significant PMH of CAD with hx of CABG x 3 in 2016, ischemic cardiomyopathy, HTN, HLD, KATE, Psoriatic arthritis and BPH who presents for elective lumbar procedure by Dr. Hutchison. #S/P L2-L3 decompression and fusion by Dr. Hutchison, POD #1 EBL 1500ml tolerated procedure well pain/wound management per ortho activity/therapy as per ortho encourage incentive spirometry -- stable overall #Acute blood loss anemia as cause of post operative anemia, likely dilutional component as well pre op hgb 13.1, post op 10.7 EBL 1500ml with continued IRVIN drain outpt continue to monitor hgb no indication for transfusion at this time cbc, bmp ordered for a.m. 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 - last echo 2021 EF 56% #HTN #HLD chronic, stable continue ASA, statin, metoprolol, lasix, KCL #Psoriatic arthritis as op on methotrexate, folic acid and hydroxychloroquine may continue usual methotrexate and hydroxychloroquine Currently follows rheumatology #KATE: CPAP at , he brought his from home #Morbid obesity: BMI 41.9, encourage diet/lifestyle modifications when able #DVT ppx: SCDs Admission and Anticipated Discharge Date Admission Date: October 27, 2024 Subjective ff up for s/p back surgery, etc seen resting in chair, comfortable states he feels fine overall minimal back pain ambulated in the hallways with no problems no chest pain, dyspnea, palpitations, dizziness no other symptoms Review of Systems Review of Systems: all noted and negative except for above Physical Exam Physical Exam: General- oriented x 3, not in distress, speaks in sentences with no effort or accessory muscle use Eyes- anicteric Neck- no JVD Lungs- clear breath sounds bilaterally, no rales/wheezes Heart- normal rate, regular rhythm; no murmurs Abdomen- normal bowel sounds, nondistended, soft, nontender Extremities- no pretibial edema, no calf tenderness Neuro- alert, oriented x 3; no gross focal neurologic deficits Skin- warm & dry Results & Data Results & Data Vital Signs (Past 12 Hours) Vital Signs Temp Pulse Resp BP Pulse Ox O2 Del Method 10/29/24 07:32 36.5 C 66 16 132/78 95 Room Air all noted and reviewed including below
== END 2024-10-29 12:54 | disposition home or self-care (01) | DRG 402 ==
LOC: ASU 09:28 → 3E 13:49